=== PATIENT | male | born 1940 | race Caucasian/White ===

== ENCOUNTER 2017-10-12 12:41 | Observation (INO) ==
--- NOTE | 2017-10-12 12:57 | Emergency Department Note ---
Disposition Clinical Impression: Acute renal failure Disposition: Admitted As Inpatient Condition: Fair Referrals: Parker Church DO [Primary Care Provider] - Time of Disposition: 14:27 (milka mckeon) Arrhythmia/Palpitations HPI - General Chief Complaint: ED Arrhythmia/Palpitations Stated Complaint: Palpitations Time Seen by Provider: 10/12/17 12:50 Source: patient Mode of arrival: ambulatory Limitations: no limitations Nursing Notes Reviewed: Yes Vital Signs Reviewed: Yes - History of Present Illness HPI Narrative: 77-year-old who presents to the emergency room is having intermittent patient is usually in the morning he had 3 episodes this week. 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 Duration: constant Severity: mild Context: occurred during rest Arrhythmia History: pacemaker Associated symptoms: Denies: chest pain, shortness of breath, syncope, near- syncope, nausea, vomiting, anxiety, diaphoresis, cough, paresthesias, muscle cramps - Related Data Home Medications Medication Instructions Recorded Confirmed Atorvastatin [Lipitor] 20 mg PO DAILY 04/02/15 10/12/17 Escitalopram [Lexapro] 40 mg PO DAILY 04/02/15 10/12/17 Levothyroxine [Synthroid] 75 mcg PO DAILY 04/02/15 10/12/17 Mirtazapine [Remeron] 15 mg PO HS 04/02/15 10/12/17 Warfarin [Coumadin] 5 mg PO MOFR 04/02/15 10/12/17 lamoTRIgine [Lamictal] 25 mg PO DAILY 07/26/15 10/12/17 Buspirone HCl [Buspar] 7.5 mg PO BID 05/22/16 10/12/17 Melatonin/Pyridoxine HCl (B6) 3 mg PO HS 05/22/16 10/12/17 [Melatonin 3 mg Tablet] Omeprazole [PriLOSEC] 20 mg PO DAILY 05/22/16 10/12/17 Cyanocobalamin (Vitamin B-12) 1,000 mcg PO DAILY 03/15/17 10/12/17 [Vitamin B12] Previous Rx's Medication Instructions Recorded Aspirin Enteric Coated [Aspirin EC] 81 mg PO DAILY #90 tablet. 05/26/16 Metoprolol [Lopressor] 12.5 mg PO BID #60 tablet 03/16/17 Warfarin [Coumadin] 2.5 mg PO SUTUWETHSA #0 03/16/17 Allergies Allergy/AdvReac Type Severity Reaction Status Date / Time Iodinated Contrast- Oral and Allergy Anaphylaxis Verified 10/12/17 12:41 IV Dye [Iodinated Contrast Media - IV Dye] diazepam [From Valium] AdvReac Confusion Verified 10/12/17 12:41 lisinopril AdvReac Cough Verified 10/12/17 12:41 All systems ED: reviewed and negative except as stated. Review of Systems: As Per HPI Constitutional: Denies: fever, chills, weakness Eyes: Denies: eye pain, eye discharge ENT ED: Denies: ear pain, throat pain Cardiovascular: Reports: chest pain, palpitations. Denies: dyspnea on exertion Respiratory: Denies: cough, dyspnea, wheezes Gastrointestinal: Denies: abdominal pain, nausea, vomiting Genitourinary: Denies: urgency, dysuria Musculoskeletal: Denies: back pain Integumentary: Denies: rash, abrasion Neurological: Denies: headache Psychiatric: Denies: anxiety Endocrine: Denies: fatigue Hematological/Lymphatic: Denies: easy bleeding Allergic/Immunologic: Denies: facial swelling Past Medical History - Past Medical History Attestation: Yes The following information was validated with the patient. Source: patient, old records reviewed, nursing notes reviewed Medical history: Reports: aortic aneurysm, asthma, cancer, COPD, coronary artery disease, CVA, DVT, GERD, hyperlipidemia, hypertension, myocardial infarction, renal disease, thyroid disease Surgical history: Reports: angioplasty/stent, appendectomy, cancer surgery, carotid endarterectomy, cholecystectomy, other Psychiatric history: Reports: bipolar, depression - Social History Smoking Status: Former smoker Smokeless Tobacco Status: No Alcohol use: Reports: none Drug use: Reports: none Physical Exam - General Limitations: no limitations General appearance: alert, in no apparent distress, anxious, other (Very dry skin noted about the facial and oral area of the patient) - Head Head exam: atraumatic, normocephalic - Eye Eye exam: Present: normal appearance, PERRL, EOMI - ENT ENT exam: normal exam, normal oropharynx, mucous membranes moist - Neck Neck exam: Present: normal inspection, full ROM, trachea midline - Chest Chest inspection: Present: normal inspection, symmetric chest wall rise - Respiratory Respiratory exam: Present: normal lung sounds bilaterally - Cardiovascular Cardiovascular exam: Present: regular rate, normal rhythm, normal heart sounds - Abdominal Exam Abdominal exam: Present: soft, Non-Tender, normal bowel sounds. Absent: mass, pulsatile mass - Expanded Upper Extremity Exam Shoulder exam: Present: normal inspection, full ROM Arm exam: Present: normal inspection, full ROM Elbow exam: Present: normal inspection, full ROM Forearm/Wrist exam: Present: normal inspection, full ROM Hand exam: Present: normal inspection, full ROM Vascular exam: Normal: capillary refill, radial pulse - Expanded Lower Extremity Exam Hip/Pelvis exam: Present: normal inspection, full ROM Upper leg exam: Present: normal inspection, full ROM Knee exam: Present: normal inspection, full ROM Lower leg exam: Present: normal inspection, full ROM Ankle exam: Present: normal inspection, full ROM Foot/toe exam: Present: normal inspection, full ROM Neurovascular/Tendon exam: Present: normal capillary refill, normal fine/light touch. Absent: motor deficit, sensory deficit, tendon deficit Gait: observed and normal - Back Exam Back exam: Present: normal inspection, full ROM. Absent: muscle spasm - Neurological Exam Neurological exam: Present: alert, oriented X3, CN II-XII intact, normal gait - Psychiatric Psychiatric exam: Present: normal affect, normal mood - Skin Skin exam: Present: warm, dry, intact, normal color, other (Dry skin noted about the face) Course Course Narrative: Patient is seen and examined patient's laboratory database. The results with the family patient's kidney function that was almost doubled since the previous time when he's had blood work done here at the emergency room as result will recommend Dr. Soni has agreed he is well aware and knows the individual and IV hydration is started Vital Signs Temperature 98.6 F 10/12/17 12:44 Pulse Rate 68 10/12/17 12:44 Respiratory Rate 18 10/12/17 12:44 Blood Pressure 108/65 10/12/17 12:44 O2 Sat by Pulse Oximetry 93 10/12/17 12:44 Temperature 98.6 F 10/12/17 12:44 Pulse Rate 68 10/12/17 12:44 Respiratory Rate 18 10/12/17 12:44 Blood Pressure 108/65 10/12/17 12:44 O2 Sat by Pulse Oximetry 93 10/12/17 12:44 Oxygen Delivery Oxygen Delivery Room Air Arrhythmia/Palpitations - Differential Diagnosis Differential Diagnosis: Likely: palpitations, anxiety, metabolic/electrolyte disturbance - Medical Records Medical records reviewed: Yes I reviewed the patient's medical records. - Lab Data Lab results reviewed: Yes I reviewed the patient's lab results. - Radiology Data Radiology results reviewed: Yes I reviewed the patient's radiology results. ITS Impressions Chest X-Ray 10/12/17 12:57 IMPRESSION: Stable chest without acute cardiopulmonary findings. D/ / Ursula Villela MD / Usrula Villela MD Interpreting Provider: Ursula Villela MD - EKG Data EKG attestation: Yes I reviewed and interpreted this EKG. EKG results narrative: Paced rhythm no ectopy noted rate 60 WV 182 Kurer is 90 QT 408 axis XXXV Critical Care Time Critical Care Time: No
[2017-10-12 13:37] LABS: Basophils % 0.5 %; Eosinophils # 0.4 K/mcL (0.0-0.6); Eosinophils % 5.5 %; Hematocrit 41.9 % (37.5-50.1); Hemoglobin 13.4 g/dL (12.9-16.9); Immature Granulocytes % 0.3 % (0-4); Lymphocytes # 2.5 K/mcL (0.6-4.6); Lymphocytes % 32.6 %; Mean Corpuscular Hemoglobin 29.8 pg (28.0-33.3); Mean Corpuscular Volume 93.3 fL (83.0-100.0); Mean Platelet Volume 9.5 fL (9.4-12.4); Monocytes # 0.7 K/mcL (0.0-1.3); Platelet Count 183 K/mcL (140-400); Red Blood Count 4.49 M/mcL (4.19-5.50); Red Cell Distribution Width 13.7 % (11.5-14.5); Segmented Neutrophils % 52.1 %
[2017-10-12 13:39] LABS: INR 3.2; Prothrombin Time 34.8 Seconds (9.4-12.1)
[2017-10-12 13:41] LABS: Activated Partial Thrombo Time 51.4 Seconds (26.0-36.0)
[2017-10-12 13:49] LABS: Troponin I < 0.03 ng/mL (< 0.04)
[2017-10-12 14:01] LABS: Bilirubin,Urine Negative (Negative); Blood,Urine Negative (Negative); Clarity,Urine Clear (Clear); Color,Urine Yellow (Yellow); Glucose,Urine (UA) Normal (Normal); Ketones,Urine Negative (Negative); Leukocyte Esterase,Urine Negative (Negative); Nitrite,Urine Negative (Negative); Protein,Urine Negative (Neg-Trace); Specific Gravity,Urine 1.015 (1.010-1.025); Urobilinogen,Urine Normal (Normal)
[2017-10-12 14:03] LABS: Thyroid Stimulating Hormone 0.504 mcIU/mL (0.340-5.600)
[2017-10-12 14:18] LABS: Calcium 9.1 mg/dL (8.6-10.3); Potassium 4.6 mEq/L (3.5-5.1)
[2017-10-12] MEDS ORDERED: 0.9 % Sodium Chloride 1,000 ML IVC ONE (14:28)
[2017-10-12] MEDS ORDERED: 0.9 % Sodium Chloride 1,000 ML IVC SCH ×2 (14:30→15:17)
[2017-10-12] MEDS ORDERED: Naloxone 0.4 MG/ML INJ IVP PRN (15:17)
[2017-10-12] MEDS ORDERED: *HR* Warfarin 5 MG TABLET PO SCH (18:00)
--- NOTE | 2017-10-12 18:19 | Internal Med History&Physical ---
Date of Encounter: 10/12/17 Time of Encounter: 17:45 Assessment and Plan (1) Acute renal failure Current visit: Yes Status: Acute He will receive IV fluids. Follow-up labs will be done in a.m. Qualifiers: Acute renal failure type: unspecified Qualified Code(s): N17.9 - Acute kidney failure, unspecified (2) CKD (chronic kidney disease) stage 3, GFR 30-59 ml/min Current visit: Yes Status: Chronic Will monitor renal indices. (3) History of DVT of lower extremity Current visit: No Status: Acute Continue Coumadin. Internal Medicine - H&P: HPI Chief complaint: Palpitations, acute on chronic renal failure Admitted From: Emergency Dept Plans for Post Hospital Care: Home History of present illness: Mr. Maria is a 77 year old male who came to emergency room stating he had a sensation of "palpitations" lasting approximate 45 minutes this morning. He has had several previous episodes but never exceeding 10 minutes duration. He came to emergency room was evaluated was found to have acute on chronic renal failure. He was admitted to [facility] floor for ongoing care needs. Most recent previous creatinine was 1.49 on 03/16/2017. He has had stage III chronic kidney disease on all labs since dating to March 2014. 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 He denies other kidney bladder or prostate disorders. He denies history of hypertension although this is listed in PMH. He is on Coumadin for history of DVT. He denies pulmonary embolism. 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 He has known ASHD status post LA with PTCA and stent placement over 15 years ago. He does not know if the "flutter" has been diagnosed. Echocardiogram 05/23/2016 showed LVEF of 60-65%. There was reported mild diastolic dysfunction but E/A ratio was 1.4. He had a 3.9 x 3.7 fusiform infrarenal abdominal aortic aneurysm on CT 05/23/2016. He has had bilateral carotid endarterectomies. Past Med Surg Social Fam HX - Past Medical History Medical history: aortic aneurysm, asthma, cancer, COPD, coronary artery disease , CVA, DVT, GERD, hyperlipidemia, hypertension, myocardial infarction, renal disease, thyroid disease Additional medical history: Abdominal Aortic Aneurism, Heart stent x1 Psychiatric history: bipolar, depression - Past Surgical History Surgical History: angioplasty/stent, appendectomy, cancer surgery, carotid endarterectomy, cholecystectomy, other Additional surgical history: gastrectomy - Social History Smoking Status: Former smoker Smokeless Tobacco Status: No Alcohol use: none Drug use: none - Family History Daughter Adopted: No Living Status: Still Living Hx Family Cardiac Disorders: No Hx Family Respiratory Disorders: No Hx Family Cancer: No Hx Family GI Disorders: Yes (Choli) Hx Family Endocrine Disorder: No Hx Family Neuromuscular Disorders: No Hx Family Neurologic Disorders: No Hx Family HEENT Disorders: No Hx Family Autoimmune Disorders: No Internal Medicine - H&P: Meds Atorvastatin [Lipitor] 20 mg PO DAILY 04/02/15 [History] Escitalopram [Lexapro] 40 mg PO DAILY 04/02/15 [History] Levothyroxine [Synthroid] 75 mcg PO DAILY 04/02/15 [History] Mirtazapine [Remeron] 15 mg PO HS 04/02/15 [History] Warfarin [Coumadin] 5 mg PO MOFR 04/02/15 [History] lamoTRIgine [Lamictal] 25 mg PO DAILY 07/26/15 [History] Buspirone HCl [Buspar] 7.5 mg PO BID 05/22/16 [History] Melatonin/Pyridoxine HCl (B6) [Melatonin 3 mg Tablet] 3 mg PO HS 05/22/16 [ History] Omeprazole [PriLOSEC] 20 mg PO DAILY 05/22/16 [History] Aspirin Enteric Coated [Aspirin EC] 81 mg PO DAILY #90 tablet. 05/26/16 [Rx] Cyanocobalamin (Vitamin B-12) [Vitamin B12] 1,000 mcg PO DAILY 03/15/17 [History ] Metoprolol [Lopressor] 12.5 mg PO BID #60 tablet 03/16/17 [Rx] Warfarin [Coumadin] 2.5 mg PO SUTUWETHSA #0 03/16/17 [Rx] 3 Allergy/AdvReac Type Severity Reaction Status Date / Time Iodinated Contrast- Oral and Allergy Anaphylaxis Verified 10/12/17 12:41 IV Dye [Iodinated Contrast Media - IV Dye] diazepam [From Valium] AdvReac Confusion Verified 10/12/17 12:41 lisinopril AdvReac Cough Verified 10/12/17 12:41 All Systems PM: A 10-system review of systems was performed and is negative for pertinent findings except as documented above in the HPI. Review of systems: Gen.: His weight is increased from 81.5 kg on 05/26/2016 to 90.974 kg today Cardiovascular: As per history of present illness Respiratory: He smoked from approximately age [age]. He denies chronic lung disease and does not use home oxygen. GI: He has had cholecystectomy. He has rare GERD symptoms. He denies disorders of his liver or exocrine pancreas. The chart reports he has had partial gastrectomy Billroth II procedure for duodenal ulcer. : As per history of present illness Neurologic: He reports his memory has worsened over the past few years and he has been told he is in the early stages of Alzheimer's. He has had "mini strokes" without focal neurologic deficit. Endocrine: He denies diabetes but has hypothyroidism and hyperlipidemia Hematology/oncology: He denies internal malignancies. He had skin cancer removed from his neck recently. He thinks he has had anemia in the past. Psychiatric: He has anxiety and bipolar disorder but denies other mental health issues. [place] skeletal: Denies arthritis gout or other bone joint or muscle disorders. - Constitutional Vitals: Temp Pulse Resp BP Pulse Ox 98.5 F 64 16 114/65 96 10/12/17 15:17 10/12/17 15:17 10/12/17 15:17 10/12/17 15:17 10/12/17 15:17 Exam: Gen.: He is a well-developed well-nourished male resting comfortably in bed who appears in no acute distress HEENT: Head is atraumatic and normocephalic. Eyes: EOMI. There is no scleral icterus. Mouth: Mucosa is moist. Neck: Supple and nontender. There is no thyromegaly or adenopathy noted. Heart: Regular without murmurs gallops or ectopics Lungs: No wheezes or crackles are heard. Abdomen: Soft and nontender. No masses or guarding are noted. Extremities: There is no cyanosis edema or clubbing noted. Dorsalis pedis and posttibial pulses are trace to 1+ palpable bilaterally. His feet are warm to touch. Neurologic: Mental status: He is talkative and a fair to good historian. He does not remember some details of his history. Cranial nerves: Smile is symmetric. Forehead wrinkles bilaterally. Tongue protrudes midline. EOMI. Motor: There is no pronator drift. Cerebellar: Finger to nose is intact bilaterally. Skin: Warm and dry Internal Med - H&P Results - Labs CBC & Chem 7: 10/12/17 13:10 10/12/17 13:10 Labs: Cardiac Enzymes 10/12/17 Range/Units 16:20 Troponin I < 0.03 (< 0.04) ng/mL
--- NOTE | 2017-10-12 18:45 | Electrocardiograph Report ---
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
[2017-10-12] MEDS ORDERED: Melatonin 3 MG TABLET PO SCH (21:00)
[2017-10-12] MEDS ORDERED: Mirtazapine 15 MG TABLET PO SCH (21:00)
[2017-10-13 06:21] LABS: Prothrombin Time 32.6 Seconds (9.4-12.1)
[2017-10-13 07:14] LABS: Albumin 3.3 g/dL (3.5-5.7); Albumin/Globulin Ratio 1.3 (1.1-2.2); Bilirubin,Total 0.4 mg/dL (0.3-1.0); Calcium 8.5 mg/dL (8.6-10.3); Globulin 2.6 g/dL (2.4-3.5); Potassium 4.6 mEq/L (3.5-5.1); Total Protein 5.9 g/dL (6.4-8.9)
[2017-10-13 08:58] VITALS: BP 112/53
[2017-10-13] MEDS ORDERED: Cyanocobalamin (B-12) 1,000 MCG TABLET PO SCH (09:00)
[2017-10-13] MEDS ORDERED: Aspirin Enteric Coated 81 MG Tablet PO SCH (09:00)
[2017-10-13] MEDS ORDERED: lamoTRIgine 25 MG TABLET PO SCH (09:00)
--- NOTE | 2017-10-13 10:03 | Discharge Summary ---
Orders not resulted at time of discharge: Pending orders 10/13/17 05:06 Vitamin B12 AM 0400 Date of Encounter: 10/13/17 Time of Encounter: 09:55 - Discharge Diagnosis (1) Acute renal failure Priority: Primary Status: Acute Qualifiers: Acute renal failure type: unspecified Qualified Code(s): N17.9 - Acute kidney failure, unspecified (2) CKD (chronic kidney disease) stage 3, GFR 30-59 ml/min Priority: Secondary Status: Chronic (3) History of DVT of lower extremity Priority: Secondary Status: Acute Hospital course: Mr. Maria is a 77 year old male who came to emergency room stating he had a sensation of "palpitations" lasting approximate 45 minutes this morning. He has had several previous episodes but never exceeding 10 minutes duration. He came to emergency room was evaluated was found to have acute on chronic renal failure. He was admitted to [facility] for ongoing care needs. Initial orders were written by the emergency room physician. I saw him on October 12 and performed the history and physical. He was started on IV fluids. Follow -up labs on October 13 showed BUN and creatinine decreased to 27 and 1.93 respectively with estimated GFR 34. He had no more sensation of palpitations. Repeat cardiac enzymes showed no evidence of myocardial damage. When I saw him on October 13 he felt stable for discharge home which I felt was reasonable. He will follow with his PCP within 1 week. His PCP can review medications to avoid nephrotoxic drugs. - Time Spent with Patient Total time spent providing and/or coordinating discharge services: - Discharge Medications Home Medications: Atorvastatin [Lipitor] 20 mg PO DAILY 04/02/15 [History] Escitalopram [Lexapro] 40 mg PO DAILY 04/02/15 [History] Levothyroxine [Synthroid] 75 mcg PO DAILY 04/02/15 [History] Mirtazapine [Remeron] 15 mg PO HS 04/02/15 [History] Warfarin [Coumadin] 5 mg PO MOFR 04/02/15 [History] lamoTRIgine [Lamictal] 25 mg PO DAILY 07/26/15 [History] Buspirone HCl [Buspar] 7.5 mg PO BID 05/22/16 [History] Melatonin/Pyridoxine HCl (B6) [Melatonin 3 mg Tablet] 3 mg PO HS 05/22/16 [ History] Omeprazole [PriLOSEC] 20 mg PO DAILY 05/22/16 [History] Aspirin Enteric Coated [Aspirin EC] 81 mg PO DAILY #90 tablet. 05/26/16 [Rx] Cyanocobalamin (Vitamin B-12) [Vitamin B12] 1,000 mcg PO DAILY 03/15/17 [History ] Metoprolol [Lopressor] 12.5 mg PO BID #60 tablet 03/16/17 [Rx] Warfarin [Coumadin] 2.5 mg PO SUTUWETHSA #0 03/16/17 [Rx] Allergies/Adverse Reactions: 3 Allergy/AdvReac Type Severity Reaction Status Date / Time Iodinated Contrast- Oral and Allergy Anaphylaxis Verified 10/12/17 12:41 IV Dye [Iodinated Contrast Media - IV Dye] diazepam [From Valium] AdvReac Confusion Verified 10/12/17 12:41 lisinopril AdvReac Cough Verified 10/12/17 12:41 Date of admission: 10/12/17 14:37 Primary care physician: Parker Church DO - Constitutional Vitals: Temp Pulse Resp BP Pulse Ox 97.5 F L 61 18 112/53 95 10/12/17 23:43 10/13/17 08:57 10/13/17 08:57 10/13/17 08:57 10/13/17 08:57 - Patient Status Disposition: Home, Self-Care Overall status at discharge: patient is progressing back to baseline - Discharge Instructions Follow Up With: Parker Church DO [Primary Care Provider] - 1 week - Diet and Activity Activity: resume usual activities as tolerated Diet: advance to your usual diet
[2017-10-17] MEDS ORDERED: *HR* Warfarin 5 MG TABLET PO SCH ×2 (18:00)
[2017-10-18] MEDS ORDERED: *HR* Warfarin 5 MG TABLET PO SCH (18:00)
== END 2017-10-13 11:20 | disposition home or self-care (01) ==
LOC: INPPIK 12:41 → EMEROOPIK 12:41 → INPPIK 14:48
PROVIDERS: ADMIT Internal Medicine; ATTEND Internal Medicine

== ENCOUNTER 2018-09-27 10:00 | Inpatient (IN) ==
[2018-09-27] MEDS ORDERED: levoFLOXacin 500 MG/100 ML 500 MG/100 ML BAG IVPB ONE (10:32)
[2018-09-27] MEDS ORDERED: Ipratropium/Albuterol Neb 3 ML IH ONE (10:32)
[2018-09-27] MEDS ORDERED: methylPREDNISolone 125 MG/2 ML VIAL IVP ONE (10:32)
--- NOTE | 2018-09-27 10:36 | Emergency Department Note ---
Disposition Clinical Impression: Acute exacerbation of chronic obstructive airways disease Disposition: Admitted As Inpatient Condition: Fair Time of Disposition: 15:11 SOB HPI - General Chief Complaint: ED Shortness of Breath/Dyspnea Stated Complaint: short of breath Time Seen by Provider: 09/27/18 10:04 Source: patient Mode of arrival: ambulatory Limitations: no limitations Nursing Notes Reviewed: Yes Vital Signs Reviewed: Yes - History of Present Illness 78-year-old male who presents emergency room his increasing stress breath but no chest pain chest pressure he said cough and congestion. No apnea and no cyanosis. Worsened here in the past week. Denies any diarrhea melena hematochezia hematemesis. Denies the ability to cough up any phlegm. He denies any fever chills joint aches rash or lesions. Patient states that his family brought him in. Family tells me though that his had increasing forgetfulness an exacerbation of his dementia and recently saw neurology and they are also concerned from that aspect denies though any numbness tingling weakness loss sensation or any recent falls all systems reviewed and are otherwise negative Pt Subjective Complaint: shortness of breath Onset (ago): week(s) Context: recent illness Severity: moderate Consistency/Duration: constant, gradually worsening Improves with: nothing Worsens with: exertion Known history of: COPD Associated symptoms: Reports: cough, wheezing, sputum production (unable to expectorate). Denies: chest pain, pain with inspiration, fever, orthopnea, lower extremity pain, polyuria, polydipsia, parasthesias, palpitations, hemoptysis, diaphoresis, nausea/vomiting, syncope, abdominal pain, rash, sense of impending doom Treatment prior to arrival: bronchodilator Cough present: Yes Cough Description: Involuntary, Weak, Rattling Cough Frequency: Intermittent Sputum production: No Sputum Amount: None - Related Data Home Medications Medication Instructions Recorded Confirmed Atorvastatin [Lipitor] 20 mg PO DAILY 04/02/15 09/27/18 Escitalopram [Lexapro] 40 mg PO DAILY 04/02/15 10/12/17 Levothyroxine [Synthroid] 75 mcg PO DAILY 04/02/15 09/27/18 Mirtazapine [Remeron] 15 mg PO HS 04/02/15 09/27/18 Warfarin [Coumadin] 5 mg PO MOFR 04/02/15 09/27/18 lamoTRIgine [Lamictal] 25 mg PO DAILY 07/26/15 09/27/18 Buspirone HCl [Buspar] 7.5 mg PO BID 05/22/16 09/27/18 Melatonin/Pyridoxine HCl (B6) 3 mg PO HS 05/22/16 09/27/18 [Melatonin 3 mg Tablet] Omeprazole [PriLOSEC] 40 mg PO DAILY 05/22/16 09/27/18 Cyanocobalamin (Vitamin B-12) 1,000 mcg PO DAILY 03/15/17 09/27/18 [Vitamin B12] Donepezil [Aricept] 5 mg PO HS 09/27/18 09/27/18 Previous Rx's Medication Instructions Recorded Aspirin Enteric Coated [Aspirin EC] 81 mg PO DAILY #90 tablet. 05/26/16 Metoprolol [Lopressor] 12.5 mg PO BID #60 tablet 03/16/17 Warfarin [Coumadin] 2.5 mg PO SUTUWETHSA #0 03/16/17 Allergies Allergy/AdvReac Type Severity Reaction Status Date / Time Iodinated Contrast- Oral and Allergy Anaphylaxis Verified 10/12/17 12:41 IV Dye [Iodinated Contrast Media - IV Dye] diazepam [From Valium] AdvReac Confusion Verified 10/12/17 12:41 lisinopril AdvReac Cough Verified 10/12/17 12:41 All systems ED: reviewed and negative except as stated. Review of Systems: As Per HPI Constitutional: Reports: weakness. Denies: fever, chills Eyes: Denies: eye pain, eye discharge ENT ED: Reports: congestion. Denies: ear pain, throat pain Cardiovascular: Denies: chest pain, palpitations Respiratory: Reports: cough, dyspnea, wheezes, sputum production Gastrointestinal: Denies: abdominal pain, nausea Genitourinary: Denies: urgency, dysuria Musculoskeletal: Denies: back pain Integumentary: Denies: rash Neurological: Denies: headache Psychiatric: Denies: anxiety Endocrine: Denies: fatigue Hematological/Lymphatic: Denies: easy bleeding Allergic/Immunologic: Denies: facial swelling Past Medical History - Past Medical History Attestation: Yes The following information was validated with the patient. Source: patient, old records reviewed, nursing notes reviewed Medical history: Reports: aortic aneurysm, asthma, cancer, COPD, coronary artery disease, CVA, DVT, GERD, hyperlipidemia, hypertension, myocardial infarction, renal disease, thyroid disease, other Surgical history: Reports: angioplasty/stent, appendectomy, cancer surgery, carotid endarterectomy, cholecystectomy, other Psychiatric history: Reports: bipolar, depression - Social History Smoking Status: Former smoker Smokeless Tobacco Status: No Alcohol use: Reports: none Drug use: Reports: none Physical Exam - General Limitations: no limitations General appearance: alert, in no apparent distress - Head Head exam: atraumatic, normocephalic, normal inspection - Eye Eye exam: Present: normal appearance, PERRL, EOMI - ENT ENT exam: normal exam, normal oropharynx, mucous membranes moist, TM's normal bilaterally, normal external ear exam - Neck Neck exam: Present: normal inspection, full ROM, trachea midline - Chest Chest inspection: Present: normal inspection, symmetric chest wall rise - Respiratory Respiratory exam: Present: normal lung sounds bilaterally - Cardiovascular Cardiovascular exam: Present: regular rate, normal rhythm, normal heart sounds - Abdominal Exam Abdominal exam: Present: soft, Non-Tender, normal bowel sounds. Absent: mass, pulsatile mass - Extremities Exam Extremities exam: Present: normal inspection, full ROM, normal capillary refill. Absent: tenderness, pedal edema, joint swelling, calf tenderness - Expanded Lower Extremity Exam Neurovascular/Tendon exam: Present: normal capillary refill, normal fine/light touch Gait: observed and normal - Back Exam Back exam: Present: normal inspection, full ROM. Absent: muscle spasm - Neurological Exam Neurological exam: Present: alert, oriented X3, CN II-XII intact, normal gait - Psychiatric Psychiatric exam: Present: normal affect, normal mood - Skin Skin exam: Present: warm, dry, intact, normal color Course Course Narrative: he was initially seen and evaluated patient was given an aerosol treatment 2 this did help loosen up the cough but he still had a wet rattly cough despite a chest x-ray showing no acute process it did appear though that he had like an underlying COPD as result patient was transferred to [facility] from the emergency room patient was then transferred from the emergency room to [facility] for further care treatment management after discussion with family and they agreed for transfer Vital Signs Temperature 98.2 F 09/27/18 10:01 Pulse Rate 66 09/27/18 10:01 Respiratory Rate 09/27/18 10:01 Blood Pressure 135/54 09/27/18 10:01 O2 Sat by Pulse Oximetry 93 09/27/18 10:01 Temperature 98.8 F 09/27/18 13:32 Pulse Rate 88 09/27/18 13:32 Respiratory Rate 20 09/27/18 13:32 Blood Pressure 84/46 09/27/18 13:32 O2 Sat by Pulse Oximetry 96 09/27/18 13:32 Oxygen Delivery Oxygen Delivery Room Air Shortness of Breath/Dyspnea - Differential Diagnosis Likely: acute exacerbation of chronic obstructive airways disease, congestive heart failure, pneumonia - Medical Records Medical records reviewed: Yes I reviewed the patient's medical records. - Lab Data Lab results reviewed: Yes I reviewed the patient's lab results. Result diagrams: 09/27/18 11:10 09/27/18 11:10 Lab Results 09/27/18 09/27/18 09/27/18 Range/Units 10:20 11:10 11:10 WBC 9.3 (4.3-11.1) K/mcL RBC 3.67 L (4.19-5.50) M/mcL Hgb 11.2 L (12.9-16.9) g/dL Hct 34.9 L (37.5-50.1) % MCV 95.1 (83.0-100.0) fL MCH 30.5 (28.0-33.3) pg MCHC 32.1 (31.6-35.5) g/dL RDW 13.9 (11.5-14.5) % Plt Count 153 (140-400) K/mcL MPV 9.1 L (9.4-12.4) fL Immature Gran % 0.3 (0-4) % Seg Neutrophils % 53.4 % Lymphocytes % 36.5 % Monocytes % 7.4 % Eosinophils % 2.0 % Basophils % 0.4 % Neutrophils # 5.0 (1.6-8.9) K/mcL Lymphocytes # 3.4 (0.6-4.6) K/mcL Monocytes # 0.7 (0.0-1.3) K/mcL Eosinophils # 0.2 (0.0-0.6) K/mcL Basophils # 0.0 (0.0-0.2) K/mcL PT (9.4-12.1) Seconds INR APTT 40.7 H (26.0-36.0) Seconds Sodium (136-145) mEq/L Potassium (3.5-5.1) mEq/L Chloride (98-107) mEq/L Carbon Dioxide (23-29) mEq/L BUN (8-23) mg/dL Creatinine (0.70-1.30) mg/dL Est GFR ( Amer) (> 60) Est GFR (Non-Af Amer) (> 60) BUN/Creatinine Ratio (6-26) Glucose (70-105) mg/dL Calculated Osmolality (280-300) Lactic Acid (0.5-2.2) mmol/L Calcium (8.6-10.3) mg/dL Magnesium (1.6-2.6) mg/dL Total Bilirubin (0.3-1.0) mg/dL AST (13-39) Units/L ALT (7-52) Units/L Alkaline Phosphatase (34-104) Units/L Troponin I (< 0.04) ng/mL B-Natriuretic Peptide (Less than 100) pg/mL Serum Total Protein (6.4-8.9) g/dL Albumin (3.5-5.7) g/dL Globulin (2.4-3.5) g/dL Albumin/Globulin Ratio (1.1-2.2) TSH (0.340-5.600) mcIU/mL Urine Color Light Yellow (Yellow) Urine Clarity Clear (Clear) Urine pH 6.0 (5.0-8.0) pH Units Ur Specific [place] 1.015 (1.010-1.025) Urine Protein Negative (Neg-Trace) mg/dL Urine Glucose (UA) Normal (Normal) mg/dL Urine Ketones Negative (Negative) mg/dL Urine Blood Negative (Negative) Urine Nitrite Negative (Negative) Urine Bilirubin Negative (Negative) Urine Urobilinogen Normal (Normal) mg/dL Ur Leukocyte Esterase Negative (Negative) Ur Culture Indicated? NO (NO) 09/27/18 09/27/18 09/27/18 Range/Units 11:10 11:10 11:10 WBC (4.3-11.1) K/mcL RBC (4.19-5.50) M/mcL Hgb (12.9-16.9) g/dL Hct (37.5-50.1) % MCV (83.0-100.0) fL MCH (28.0-33.3) pg MCHC (31.6-35.5) g/dL RDW (11.5-14.5) % Plt Count (140-400) K/mcL MPV (9.4-12.4) fL Immature Gran % (0-4) % Seg Neutrophils % % Lymphocytes % % Monocytes % % Eosinophils % % Basophils % % Neutrophils # (1.6-8.9) K/mcL Lymphocytes # (0.6-4.6) K/mcL Monocytes # (0.0-1.3) K/mcL Eosinophils # (0.0-0.6) K/mcL Basophils # (0.0-0.2) K/mcL PT (9.4-12.1) Seconds INR APTT (26.0-36.0) Seconds Sodium 139 (136-145) mEq/L Potassium 5.1 (3.5-5.1) mEq/L Chloride 105 (98-107) mEq/L Carbon Dioxide 28 (23-29) mEq/L BUN 37 H (8-23) mg/dL Creatinine 2.32 H (0.70-1.30) mg/dL Est GFR ( Amer) 33 L (> 60) Est GFR (Non-Af Amer) 27 L (> 60) BUN/Creatinine Ratio 16 (6-26) Glucose 112 H (70-105) mg/dL Calculated Osmolality 297 (280-300) Lactic Acid 1.7 (0.5-2.2) mmol/L Calcium 8.7 (8.6-10.3) mg/dL Magnesium (1.6-2.6) mg/dL Total Bilirubin 0.4 (0.3-1.0) mg/dL AST 14 (13-39) Units/L ALT 11 (7-52) Units/L Alkaline Phosphatase 80 (34-104) Units/L Troponin I (< 0.04) ng/mL B-Natriuretic Peptide 328 H (Less than 100) pg/mL Serum Total Protein 6.9 (6.4-8.9) g/dL Albumin 3.9 (3.5-5.7) g/dL Globulin 3.0 (2.4-3.5) g/dL Albumin/Globulin Ratio 1.3 (1.1-2.2) TSH (0.340-5.600) mcIU/mL Urine Color (Yellow) Urine Clarity (Clear) Urine pH (5.0-8.0) pH Units Ur Specific [place] (1.010-1.025) Urine Protein (Neg-Trace) mg/dL Urine Glucose (UA) (Normal) mg/dL Urine Ketones (Negative) mg/dL Urine Blood (Negative) Urine Nitrite (Negative) Urine Bilirubin (Negative) Urine Urobilinogen (Normal) mg/dL Ur Leukocyte Esterase (Negative) Ur Culture Indicated? (NO) 09/27/18 09/27/18 Range/Units 11:10 11:10 WBC (4.3-11.1) K/mcL RBC (4.19-5.50) M/mcL Hgb (12.9-16.9) g/dL Hct (37.5-50.1) % MCV (83.0-100.0) fL MCH (28.0-33.3) pg MCHC (31.6-35.5) g/dL RDW (11.5-14.5) % Plt Count (140-400) K/mcL MPV (9.4-12.4) fL Immature Gran % (0-4) % Seg Neutrophils % % Lymphocytes % % Monocytes % % Eosinophils % % Basophils % % Neutrophils # (1.6-8.9) K/mcL Lymphocytes # (0.6-4.6) K/mcL Monocytes # (0.0-1.3) K/mcL Eosinophils # (0.0-0.6) K/mcL Basophils # (0.0-0.2) K/mcL PT 23.3 H (9.4-12.1) Seconds INR 2.1 APTT (26.0-36.0) Seconds Sodium (136-145) mEq/L Potassium (3.5-5.1) mEq/L Chloride (98-107) mEq/L Carbon Dioxide (23-29) mEq/L BUN (8-23) mg/dL Creatinine (0.70-1.30) mg/dL Est GFR ( Amer) (> 60) Est GFR (Non-Af Amer) (> 60) BUN/Creatinine Ratio (6-26) Glucose (70-105) mg/dL Calculated Osmolality (280-300) Lactic Acid (0.5-2.2) mmol/L Calcium (8.6-10.3) mg/dL Magnesium 3.0 H (1.6-2.6) mg/dL Total Bilirubin (0.3-1.0) mg/dL AST (13-39) Units/L ALT (7-52) Units/L Alkaline Phosphatase (34-104) Units/L Troponin I < 0.03 (< 0.04) ng/mL B-Natriuretic Peptide (Less than 100) pg/mL Serum Total Protein (6.4-8.9) g/dL Albumin (3.5-5.7) g/dL Globulin (2.4-3.5) g/dL Albumin/Globulin Ratio (1.1-2.2) TSH 0.377 (0.340-5.600) mcIU/mL Urine Color (Yellow) Urine Clarity (Clear) Urine pH (5.0-8.0) pH Units Ur Specific [place] (1.010-1.025) Urine Protein (Neg-Trace) mg/dL Urine Glucose (UA) (Normal) mg/dL Urine Ketones (Negative) mg/dL Urine Blood (Negative) Urine Nitrite (Negative) Urine Bilirubin (Negative) Urine Urobilinogen (Normal) mg/dL Ur Leukocyte Esterase (Negative) Ur Culture Indicated? (NO) - Radiology Data Radiology results reviewed: Yes I reviewed the patient's radiology results. ITS Impressions Chest X-Ray 09/27/18 10:30 IMPRESSION: No acute cardiopulmonary process. D/ / Nahum Villela MD / Nahum Villela MD Interpreting Provider: Nahum Villela MD Critical Care Time Critical Care Time: No
[2018-09-27] MEDS ORDERED: 0.9 % Sodium Chloride 1,000 ML IVC SCH ×2 (10:45→13:09)
[2018-09-27 10:50] LABS: Bilirubin,Urine Negative (Negative); Blood,Urine Negative (Negative); Clarity,Urine Clear (Clear); Color,Urine Light Yellow (Yellow); Glucose,Urine (UA) Normal (Normal); Ketones,Urine Negative (Negative); Leukocyte Esterase,Urine Negative (Negative); Nitrite,Urine Negative (Negative); Protein,Urine Negative (Neg-Trace); Specific Gravity,Urine 1.015 (1.010-1.025); Urobilinogen,Urine Normal (Normal)
[2018-09-27 11:29] LABS: Basophils % 0.4 %; Eosinophils # 0.2 K/mcL (0.0-0.6); Hematocrit 34.9 % (37.5-50.1); Hemoglobin 11.2 g/dL (12.9-16.9); Immature Granulocytes % 0.3 % (0-4); Lymphocytes # 3.4 K/mcL (0.6-4.6); Lymphocytes % 36.5 %; Mean Corpuscular HGB Conc 32.1 g/dL (31.6-35.5); Mean Corpuscular Hemoglobin 30.5 pg (28.0-33.3); Mean Corpuscular Volume 95.1 fL (83.0-100.0); Mean Platelet Volume 9.1 fL (9.4-12.4); Monocytes # 0.7 K/mcL (0.0-1.3); Monocytes % 7.4 %; Platelet Count 153 K/mcL (140-400); Red Blood Count 3.67 M/mcL (4.19-5.50); Red Cell Distribution Width 13.9 % (11.5-14.5); Segmented Neutrophils % 53.4 %; White Blood Count 9.3 K/mcL (4.3-11.1)
[2018-09-27 11:41] LABS: INR 2.1; Prothrombin Time 23.3 Seconds (9.4-12.1)
[2018-09-27 11:47] LABS: Albumin 3.9 g/dL (3.5-5.7); Albumin/Globulin Ratio 1.3 (1.1-2.2); Bilirubin,Total 0.4 mg/dL (0.3-1.0); Calcium 8.7 mg/dL (8.6-10.3); Potassium 5.1 mEq/L (3.5-5.1); Total Protein 6.9 g/dL (6.4-8.9)
[2018-09-27 11:50] LABS: Troponin I < 0.03 ng/mL (< 0.04)
[2018-09-27 12:04] LABS: Thyroid Stimulating Hormone 0.377 mcIU/mL (0.340-5.600)
[2018-09-27] MEDS ORDERED: Naloxone 0.4 MG/ML INJ IVP PRN (13:09)
[2018-09-27] MEDS: Ipratropium/Albuterol Neb 3 ML IH SCH ×2 (17:16→22:07)
[2018-09-27] MEDS: *HR* Warfarin 2.5 MG TABLET PO SCH (17:37)
[2018-09-27] MEDS ORDERED: MethylPREDNISolone 40 MG/ML VIAL IVP SCH (18:00)
--- NOTE | 2018-09-27 19:29 | Internal Med History&Physical ---
Date of Encounter: 09/27/18 Time of Encounter: 18:50 Assessment and Plan (1) Acute bronchitis Current visit: Yes Status: Acute Pro-calcitonin level will be done. He received a dose of IV Levaquin in emergency room and was started on Solu-Medrol. Steroids will be discontinued. Robitussin-DM will be ordered Qualifiers: Bronchitis organism: unspecified organism Qualified Code(s): J20.9 - Acute bronchitis, unspecified (2) Elevated brain natriuretic peptide (BNP) level Current visit: Yes Status: Acute Present on most labs since August 2014. Echocardiogram May 2016 showed LVEF of 60-65%. Monitor labs. (3) Anemia Current visit: Yes Status: Acute Check anemia testing in a.m. Qualifiers: Anemia type: unspecified type Qualified Code(s): D64.9 - Anemia, unspecified (4) CKD (chronic kidney disease) stage 3, GFR 30-59 ml/min Current visit: No Status: Chronic Monitor renal indices. (5) Hyperuricemia Current visit: Yes Status: Acute Check uric acid level in a.m. Internal Medicine - H&P: HPI Chief complaint: Cough and dyspnea Admitted From: Emergency Dept Plans for Post Hospital Care: Home History of present illness: Mr. Maria is a 78 year old male who came to emergency room complaining of 2-3 day history of chills, cough and dyspnea. He denies vomiting or diarrhea. His evaluated in emergency room and was felt to have exacerbation of COPD. He was admitted to [facility] floor for ongoing care. Respiratory history is significant for having smoked from approximately age 10- 30. He denies chronic lung disease and does not use home oxygen. He reports the cough has become productive of yellow sputum the past 24 hours. He denies hemoptysis. Past Med Surg Social Fam HX - Past Medical History Medical history: aortic aneurysm, asthma, cancer, COPD, coronary artery disease, DVT, GERD, hyperlipidemia, myocardial infarction, renal disease, thyroid disease, other Additional medical history: Abdominal Aortic Anurysm, Heart stent x1, skin cancer, Hypotension Psychiatric history: bipolar, depression - Past Surgical History Surgical History: pacemaker/AICD Additional surgical history: gastrectomy - Social History Smoking Status: Former smoker Smokeless Tobacco Status: No Alcohol use: none Drug use: none - Family History Daughter Adopted: No Living Status: Still Living Hx Family Cardiac Disorders: No Hx Family Respiratory Disorders: No Hx Family Cancer: No Hx Family GI Disorders: Yes (Choli) Hx Family Endocrine Disorder: No Hx Family Neuromuscular Disorders: No Hx Family Neurologic Disorders: No Hx Family HEENT Disorders: No Hx Family Autoimmune Disorders: No Internal Medicine - H&P: Meds Atorvastatin [Lipitor] 20 mg PO DAILY 04/02/15 [History] Escitalopram [Lexapro] 40 mg PO DAILY 04/02/15 [History] Levothyroxine [Synthroid] 75 mcg PO DAILY 04/02/15 [History] Mirtazapine [Remeron] 15 mg PO HS 04/02/15 [History] Warfarin [Coumadin] 5 mg PO MOFR 04/02/15 [History] lamoTRIgine [Lamictal] 25 mg PO DAILY 07/26/15 [History] Buspirone HCl [Buspar] 7.5 mg PO BID 05/22/16 [History] Melatonin/Pyridoxine HCl (B6) [Melatonin 3 mg Tablet] 3 mg PO HS 05/22/16 [History] Omeprazole [PriLOSEC] 40 mg PO DAILY 05/22/16 [History] Aspirin Enteric Coated [Aspirin EC] 81 mg PO DAILY #90 tablet. 05/26/16 [Rx] Cyanocobalamin (Vitamin B-12) [Vitamin B12] 1,000 mcg PO DAILY 03/15/17 [History] Metoprolol [Lopressor] 12.5 mg PO BID #60 tablet 03/16/17 [Rx] Warfarin [Coumadin] 2.5 mg PO SUTUWETHSA #0 03/16/17 [Rx] Donepezil [Aricept] 5 mg PO HS 09/27/18 [History] Allergy/AdvReac Type Severity Reaction Status Date / Time Iodinated Contrast- Oral and Allergy Anaphylaxis Verified 10/12/17 12:41 IV Dye [Iodinated Contrast Media - IV Dye] diazepam [From Valium] AdvReac Confusion Verified 10/12/17 12:41 lisinopril AdvReac Cough Verified 10/12/17 12:41 All Systems PM: A 10-system review of systems was performed and is negative for pertinent findings except as documented above in the HPI. Review of systems: Review of systems from his October 2017 [facility] hospitalization were reviewed and revised as below. Gen.: His weight increased from 81.5 kg on 05/26/2016 to 90.974 kg October 2017 hospitalization but has decreased to 77.564 kg today. Cardiovascular: He has history of hypertension. He is on Coumadin for history of DVT per old records but he denies knowledge of DVT or pulmonary embolism. 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 He has known ASHD status post NH with PTCA and stent placement over 15 years ago. He does not know if atrial fib/flutter has been diagnosed. He is uncertain why he is on Coumadin. Echocardiogram 05/23/2016 showed LVEF of 60-65%. There was reported mild diastolic dysfunction but E/A ratio was 1.4. He had a 3.9 x 3.7 fusiform infrarenal abdominal aortic aneurysm on CT 05/23/2016. He has had bilateral carotid endarterectomies. Respiratory: As per history of present illness GI: He has had cholecystectomy. He has rare GERD symptoms. He denies disorders of his liver or exocrine pancreas. The chart reports he has had partial gastrectomy Billroth II procedure for duodenal ulcer. His daughter reports he has had 2 Brennen-en-Y surgeries with most recent one approximately 2003. : He has stage III chronic kidney disease at least since March 2014. 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 He denies other kidney bladder or prostate disorders. Neurologic: He has been diagnosed with Alzheimer's. He has had "mini strokes" without focal neurologic deficit. Endocrine: He denies diabetes but has hypothyroidism and hyperlipidemia Hematology/oncology: He denies internal malignancies. He had skin cancer removed from his neck. He has had anemia intermittently since August 2014. Psychiatric: He has anxiety and bipolar disorder but denies other mental health issues. [place] skeletal: Denies arthritis gout or other bone joint or muscle disorders. Uric acid level was elevated at 9.0 on 12/29/2017. - Constitutional Vitals: Temp Pulse Resp BP Pulse Ox 98.8 F 92 16 92/47 94 09/27/18 18:24 09/27/18 18:24 09/27/18 18:24 09/27/18 18:24 09/27/18 18:24 Exam: Gen.: He is a well-developed well-nourished male resting comfortably in bed who appears in no acute distress HEENT: Head is atraumatic and normocephalic. Eyes: EOMI. There is no scleral icterus. Mouth: Mucosa is moist. Neck: Supple and nontender. There is no thyromegaly or adenopathy noted. Heart: Regular without murmurs gallops or ectopics Lungs: No wheezes, egophony or crackles are heard. He does not appear dyspneic. Abdomen: Soft and nontender. No masses or guarding are noted. Extremities: There is no cyanosis edema or clubbing noted. Dorsalis pedis and posterior tibial pulses are trace to 1+ palpable bilaterally. Neurologic: Mental status: He is talkative and able to answer questions generally appropriately. Cranial nerves: Smile is symmetric. Forehead wrinkles bilaterally. Tongue protrudes midline. EOMI. Motor: There is no pronator drift. He has slight cogwheeling and rigidity on passive range of motion of his wrists and elbows. Cerebellar: Fair to nose is intact bilaterally. Skin: Warm and dry Internal Med - H&P Results - Labs CBC & Chem 7: 09/27/18 11:10 09/27/18 11:10 Labs: Short CBC 09/27/18 Range/Units 11:10 WBC 9.3 (4.3-11.1) K/mcL Hgb 11.2 L (12.9-16.9) g/dL Hct 34.9 L (37.5-50.1) % Plt Count 153 (140-400) K/mcL Neutrophils # 5.0 (1.6-8.9) K/mcL BMP 09/27/18 11:10 Sodium 139 Potassium 5.1 Chloride 105 Carbon Dioxide 28 BUN 37 H Creatinine 2.32 H Glucose 112 H Calcium 8.7 Cardiac Enzymes 09/27/18 Range/Units 11:10 Troponin I < 0.03 (< 0.04) ng/mL Liver Function 09/27/18 Range/Units 11:10 Total Bilirubin 0.4 (0.3-1.0) mg/dL AST 14 (13-39) Units/L ALT 11 (7-52) Units/L Alkaline Phosphatase 80 (34-104) Units/L Albumin 3.9 (3.5-5.7) g/dL Urine 09/27/18 Range/Units 10:20 Urine Color Light Yellow (Yellow) Urine Clarity Clear (Clear) Urine pH 6.0 (5.0-8.0) pH Units Ur Specific [place] 1.015 (1.010-1.025) Urine Protein Negative (Neg-Trace) mg/dL Urine Glucose (UA) Normal (Normal) mg/dL - Impressions ITS Impressions Chest X-Ray 09/27/18 10:30 IMPRESSION: No acute cardiopulmonary process. D/ / Nahum Villela MD / Nahum Villela MD Interpreting Provider: Nahum Villela MD
[2018-09-27] MEDS: Mirtazapine 15 MG TABLET PO SCH (19:30)
[2018-09-27] MEDS: Melatonin 3 MG TABLET PO SCH (19:30)
--- NOTE | 2018-09-27 23:07 | Electrocardiograph Report ---
[place] [id number] Test Date: 2018-09-27 Pat Name: Uzma Maria Department: EDP-12 Room: [facility] Gender: M Work Counselor: : 1940 Requested By: Angie Luz Order Number: [id number] Reading MD: Amelie Arrieta Measurements Intervals [place] Rate: 64 P: 75 WI: 155 QRS: 67 QRSD: 96 T: 72 QT: 431 QTc: 445 Interpretive Statements Sinus rhythm Electronically Signed On 09-27-2018 23:05:35 EDT by Amelie Arrieta
[2018-09-28] MEDS: Ipratropium/Albuterol Neb 3 ML IH SCH (04:45)
[2018-09-28 06:20] LABS: Basophils % 0.1 %; Hematocrit 28.1 % (37.5-50.1); Hemoglobin 9.3 g/dL (12.9-16.9); Immature Granulocytes % 0.5 % (0-4); Lymphocytes % 7.1 %; Mean Corpuscular HGB Conc 33.1 g/dL (31.6-35.5); Mean Corpuscular Hemoglobin 31.3 pg (28.0-33.3); Mean Corpuscular Volume 94.6 fL (83.0-100.0); Mean Platelet Volume 9.8 fL (9.4-12.4); Monocytes # 0.4 K/mcL (0.0-1.3); Monocytes % 2.9 %; Platelet Count 147 K/mcL (140-400); Red Blood Count 2.97 M/mcL (4.19-5.50); Segmented Neutrophils % 89.4 %; White Blood Count 14.7 K/mcL (4.3-11.1)
[2018-09-28 06:36] LABS: Uric Acid 7.6 mg/dL (2.3-7.6)
[2018-09-28 06:37] LABS: Potassium 4.8 mEq/L (3.5-5.1)
[2018-09-28 07:20] LABS: Neutrophils # 13.1 K/mcL (1.6-8.9)
[2018-09-28] MEDS: Aspirin Enteric Coated 81 MG Tablet PO SCH (08:09)
[2018-09-28] MEDS: lamoTRIgine 25 MG TABLET PO SCH (08:10)
[2018-09-28] MEDS: Cyanocobalamin (B-12) 1,000 MCG TABLET PO SCH (08:10)
[2018-09-28 08:52] LABS: Estimated Average Glucose 126 mg/dl
[2018-09-28] MEDS ORDERED: levoFLOXacin 500 MG TABLET PO SCH (09:00)
[2018-09-28 09:24] LABS: Folate 12.4 ng/mL (3.0-16.0); Vitamin B12 > 1500 pg/mL (250-1100)
--- NOTE | 2018-09-28 10:12 | Internal Med Progress Note ---
Date of Encounter: 09/28/18 Time of Encounter: 10:00 - Assessment and plan (1) Acute bronchitis Current Visit: Yes Status: Acute Assessment and plan: September 28. Pro-calcitonin was normal at 0.05. Discontinue Levaquin. Continue Ro bitussin-DM. Qualifiers: Bronchitis organism: unspecified organism Qualified Code(s): J20.9 - Acute bronchitis, unspecified (2) Elevated brain natriuretic peptide (BNP) level Current Visit: Yes Status: Acute Assessment and plan: September 28. Further elevation to 500 today. Suspect due to stress of acute bronchitis. Continue to monitor. (3) Anemia Current Visit: Yes Status: Acute Assessment and plan: September 28. Anemia testing showed iron 12, transferrin saturation 5%, transferrin 165, ferritin 116, B12 > 1500, and folate 12.4. Start ferrous sulfate with ascorbic acid in a.m. Qualifiers: Anemia type: unspecified type Qualified Code(s): D64.9 - Anemia, unspecified (4) CKD (chronic kidney disease) stage 3, GFR 30-59 ml/min Current Visit: No Status: Chronic Assessment and plan: September 28. Creatinine improved to 2.08. Continue to monitor. (5) Hyperuricemia Current Visit: Yes Status: Acute Assessment and plan: September 28. Uric acid WNL 7.6. (6) Weakness Current Visit: Yes Status: Acute Assessment and plan: September 28. Order PT and OT evaluations. He reports he can only walk 15 feet at home due to fatigue. - Subjective Interval history: September 28. He states he does not feel improved and did not sleep well last night. He is still coughing with production of yellow sputum. He denies significant dyspnea while at rest. - Constitutional Vitals: Temp Pulse Resp BP Pulse Ox 98.7 F 70 24 99/51 93 09/28/18 07:44 09/28/18 07:44 09/28/18 07:44 09/28/18 07:44 09/28/18 07:44 Exam: He is lying in bed and appears minimally dyspneic at rest. Lungs show a few scattered rhonchi. Heart is regular without murmurs gallops or ectopics. Extremity show no pitting edema. I reviewed his medications and lab results. Internal Medicine: Result - Labs CBC & Chem 7: 09/28/18 05:15 09/28/18 05:15 Labs: Short CBC 09/27/18 09/28/18 Range/Units 11:10 05:15 WBC 9.3 14.7 H D (4.3-11.1) K/mcL Hgb 11.2 L 9.3 L D (12.9-16.9) g/dL Hct 34.9 L 28.1 L (37.5-50.1) % Plt Count 153 147 (140-400) K/mcL Neutrophils # 5.0 13.1 H (1.6-8.9) K/mcL BMP 09/27/18 09/28/18 11:10 05:15 Sodium 139 135 L Potassium 5.1 4.8 Chloride 105 105 Carbon Dioxide 28 23 BUN 37 H 36 H Creatinine 2.32 H 2.08 H Glucose 112 H 157 H Calcium 8.7 8.0 L Cardiac Enzymes 09/27/18 Range/Units 11:10 Troponin I < 0.03 (< 0.04) ng/mL Liver Function 09/27/18 Range/Units 11:10 Total Bilirubin 0.4 (0.3-1.0) mg/dL AST 14 (13-39) Units/L ALT 11 (7-52) Units/L Alkaline Phosphatase 80 (34-104) Units/L Albumin 3.9 (3.5-5.7) g/dL Urine 09/27/18 Range/Units 10:20 Urine Color Light Yellow (Yellow) Urine Clarity Clear (Clear) Urine pH 6.0 (5.0-8.0) pH Units Ur Specific [place] 1.015 (1.010-1.025) Urine Protein Negative (Neg-Trace) mg/dL Urine Glucose (UA) Normal (Normal) mg/dL - ABG Interpretation ABG results: PT/INR, D-dimer PT 23.3 Seconds (9.4-12.1) H 09/27/18 11:10 - Impressions Impressions Chest X-Ray 09/27/18 10:30 IMPRESSION: No acute cardiopulmonary process. D/ / Nahum Villela MD / Nahum Villela MD Interpreting Provider: Nahum Villela MD Consult Discharge Plan - Plan Referrals: Parker Church, DO [Primary Care Provider] -
[2018-09-28] MEDS: Albuterol 2.5 MG/3 ML NEBULIZER IH PRN (10:49)
[2018-09-28] MEDS: *HR* Warfarin 2.5 MG TABLET PO SCH (19:06)
[2018-09-28] MEDS: Mirtazapine 15 MG TABLET PO SCH (21:05)
[2018-09-28] MEDS: Melatonin 3 MG TABLET PO SCH (21:05)
[2018-09-28] MEDS: Acetaminophen 325 MG TABLET PO PRN (23:24)
[2018-09-29 05:14] LABS: Basophils % 0.2 %; Immature Granulocytes % 0.8 % (0-4); Lymphocytes # 2.1 K/mcL (0.6-4.6); Lymphocytes % 16.3 %; Mean Corpuscular HGB Conc 33.3 g/dL (31.6-35.5); Mean Corpuscular Hemoglobin 31.5 pg (28.0-33.3); Mean Corpuscular Volume 94.4 fL (83.0-100.0); Mean Platelet Volume 9.9 fL (9.4-12.4); Monocytes # 0.8 K/mcL (0.0-1.3); Monocytes % 6.1 %; Platelet Count 130 K/mcL (140-400); Red Blood Count 2.86 M/mcL (4.19-5.50); Red Cell Distribution Width 14.1 % (11.5-14.5); Segmented Neutrophils % 76.6 %
[2018-09-29 05:36] LABS: Potassium 5.4 mEq/L (3.5-5.1)
[2018-09-29] MEDS: Ascorbic Acid 500 MG TABLET PO SCH (06:27)
[2018-09-29] MEDS: Aspirin Enteric Coated 81 MG Tablet PO SCH (09:53)
[2018-09-29] MEDS: lamoTRIgine 25 MG TABLET PO SCH (09:53)
[2018-09-29] MEDS: Cyanocobalamin (B-12) 1,000 MCG TABLET PO SCH (09:53)
[2018-09-29] MEDS: Acetaminophen 325 MG TABLET PO PRN ×2 (10:27→22:29)
--- NOTE | 2018-09-29 12:47 | Internal Med Progress Note ---
Date of Encounter: 09/29/18 Time of Encounter: 12:40 - Assessment and plan (1) Acute bronchitis Current Visit: Yes Status: Acute Assessment and plan: September 28. Pro-calcitonin was normal at 0.05. Discontinue Levaquin. Continue Ro bitussin-DM. September 29. WBC decreased to 13.0 with significant improvement in differential. Continue to monitor. Qualifiers: Bronchitis organism: unspecified organism Qualified Code(s): J20.9 - Acute bronchitis, unspecified (2) Elevated brain natriuretic peptide (BNP) level Current Visit: Yes Status: Acute Assessment and plan: September 28. Further elevation to 500 today. Suspect due to stress of acute bronchitis. Continue to monitor. September 29. BN peptide further elevated to 797. Order echocardiogram to further evaluate. (3) Anemia Current Visit: Yes Status: Acute Assessment and plan: September 28. Anemia testing showed iron 12, transferrin saturation 5%, transferrin 165, ferritin 116, B12 > 1500, and folate 12.4. Start ferrous sulfate with ascorbic acid in a.m. September 29. Hemoglobin further decreased to 9.0. Continue ferrous sulfate with asc orbic acid. Qualifiers: Anemia type: unspecified type Qualified Code(s): D64.9 - Anemia, unspecified (4) CKD (chronic kidney disease) stage 3, GFR 30-59 ml/min Current Visit: No Status: Chronic Assessment and plan: September 28. Creatinine improved to 2.08. Continue to monitor. (5) Weakness Current Visit: Yes Status: Acute Assessment and plan: September 28. Order PT and OT evaluations. He reports he can only walk 15 feet at home due to fatigue. September 29. Continue PT and OT evaluation. He feels he would benefit from swing bed stay. - Subjective Interval history: September 28. He states he does not feel improved and did not sleep well last night. He is still coughing with production of yellow sputum. He denies significant dyspnea while at rest. September 29. He has no new complaints. He states he feels weak. - Constitutional Vitals: Temp Pulse Resp BP Pulse Ox 101.3 F H 69 16 87/43 95 09/29/18 10:47 09/29/18 10:47 09/29/18 10:47 09/29/18 10:47 09/29/18 10:47 Exam: He is sitting in bed resting comfortably. His affect is overall cheerful. I reviewed his medications and lab results. Internal Medicine: Result - Labs CBC & Chem 7: 09/29/18 04:32 09/29/18 04:32 Labs: Short CBC 09/29/18 Range/Units 04:32 WBC 13.0 H (4.3-11.1) K/mcL Hgb 9.0 L (12.9-16.9) g/dL Hct 27.0 L (37.5-50.1) % Plt Count 130 L (140-400) K/mcL Neutrophils # 10.0 H (1.6-8.9) K/mcL BMP 09/29/18 04:32 Sodium 135 L Potassium 5.4 H Chloride 106 Carbon Dioxide 25 BUN 34 H Creatinine 2.08 H Glucose 116 H Calcium 8.0 L - ABG Interpretation ABG results: PT/INR, D-dimer PT 23.3 Seconds (9.4-12.1) H 09/27/18 11:10 Consult Discharge Plan - Plan Referrals: Parker Church DO [Primary Care Provider] -
[2018-09-29] MEDS: *HR* Warfarin 2.5 MG TABLET PO SCH (17:48)
[2018-09-29] MEDS: Mirtazapine 15 MG TABLET PO SCH (20:21)
[2018-09-29] MEDS: Melatonin 3 MG TABLET PO SCH (20:21)
[2018-09-29] MEDS: *HR* Digoxin 0.125 MG TABLET PO SCH (20:21)
[2018-09-30] MEDS: Ascorbic Acid 500 MG TABLET PO SCH (05:58)
[2018-09-30 06:25] LABS: Basophils % 0.3 %; Eosinophils # 0.1 K/mcL (0.0-0.6); Eosinophils % 0.5 %; Hematocrit 27.5 % (37.5-50.1); Immature Granulocytes % 0.4 % (0-4); Lymphocytes # 2.1 K/mcL (0.6-4.6); Lymphocytes % 21.6 %; Mean Corpuscular HGB Conc 32.7 g/dL (31.6-35.5); Mean Corpuscular Hemoglobin 30.7 pg (28.0-33.3); Mean Corpuscular Volume 93.9 fL (83.0-100.0); Mean Platelet Volume 9.7 fL (9.4-12.4); Monocytes # 0.8 K/mcL (0.0-1.3); Monocytes % 8.5 %; Neutrophils # 6.8 K/mcL (1.6-8.9); Platelet Count 130 K/mcL (140-400); Red Blood Count 2.93 M/mcL (4.19-5.50); Red Cell Distribution Width 14.1 % (11.5-14.5); Segmented Neutrophils % 68.7 %; White Blood Count 9.9 K/mcL (4.3-11.1)
[2018-09-30 06:43] LABS: Potassium 4.6 mEq/L (3.5-5.1)
[2018-09-30 07:06] LABS: INR 4.4
[2018-09-30] MEDS: lamoTRIgine 25 MG TABLET PO SCH (08:13)
[2018-09-30] MEDS: *HR* Digoxin 0.125 MG TABLET PO SCH (08:13)
[2018-09-30] MEDS: Aspirin Enteric Coated 81 MG Tablet PO SCH (08:13)
[2018-09-30] MEDS: Cyanocobalamin (B-12) 1,000 MCG TABLET PO SCH (08:13)
--- NOTE | 2018-09-30 13:49 | Internal Med Progress Note ---
Date of Encounter: 09/30/18 Time of Encounter: 13:35 - Assessment and plan (1) Acute bronchitis Current Visit: Yes Status: Acute Assessment and plan: September 28. Pro-calcitonin was normal at 0.05. Discontinue Levaquin. Continue Ro bitussin-DM. September 29. WBC decreased to 13.0 with significant improvement in differential. Continue to monitor. September 30. WBC and left shift normalized. Remain off antibiotics. Qualifiers: Bronchitis organism: unspecified organism Qualified Code(s): J20.9 - Acute bronchitis, unspecified (2) Elevated brain natriuretic peptide (BNP) level Current Visit: Yes Status: Acute Assessment and plan: September 28. Further elevation to 500 today. Suspect due to stress of acute bronchitis. Continue to monitor. September 29. BN peptide further elevated to 797. Order echocardiogram to further evaluate. September 30. BN peptide improved to 370. Echocardiogram showed LVEF of 6065% with mild aortic regurgitation and mitral regurgitation. The interventricular septum and posterior wall thickness measurements were 0.80 cm each. E/A ratio was 1.6. Remain off metoprolol. Continue Lanoxin. (3) Anemia Current Visit: Yes Status: Acute Assessment and plan: September 28. Anemia testing showed iron 12, transferrin saturation 5%, transferrin 165, ferritin 116, B12 > 1500, and folate 12.4. Start ferrous sulfate with ascorbic acid in a.m. September 29. Hemoglobin further decreased to 9.0. Continue ferrous sulfate with ascorbic acid. Qualifiers: Anemia type: unspecified type Qualified Code(s): D64.9 - Anemia, unsp ecified (4) CKD (chronic kidney disease) stage 3, GFR 30-59 ml/min Current Visit: No Status: Chronic Assessment and plan: September 28. Creatinine improved to 2.08. Continue to monitor. September 30. Creatinine improved further to 1.79. Continue present Rx. (5) Weakness Current Visit: Yes Status: Acute Assessment and plan: September 28. Order PT and OT evaluations. He reports he can only walk 15 feet at home due to fatigue. September 29. Continue PT and OT evaluation. He feels he would benefit from swing bed stay. September 30. Anticipate discharge to swing bed tomorrow. - Subjective Interval history: September 28. He states he does not feel improved and did not sleep well last night. He is still coughing with production of yellow sputum. He denies significant dyspnea while at rest. September 29. He has no new complaints. He states he feels weak. September 30. He reports he has had loose stools today. He denies pain or significant dyspnea. - Constitutional Vitals: Temp Pulse Resp BP Pulse Ox 99.9 F H 72 20 105/45 99 09/30/18 06:45 09/30/18 06:45 09/30/18 06:45 09/30/18 06:45 09/30/18 06:45 Exam: He is resting comfortably in bed and appears in no acute distress. His affect is bright and cheerful. Extremities show no pitting edema. I reviewed his medications and lab results. Internal Medicine: Result - Labs CBC & Chem 7: 09/30/18 05:53 09/30/18 05:53 Labs: Short CBC 09/30/18 Range/Units 05:53 WBC 9.9 (4.3-11.1) K/mcL Hgb 9.0 L (12.9-16.9) g/dL Hct 27.5 L (37.5-50.1) % Plt Count 130 L (140-400) K/mcL Neutrophils # 6.8 (1.6-8.9) K/mcL BMP 09/30/18 05:53 Sodium 138 Potassium 4.6 Chloride 106 Carbon Dioxide 27 BUN 29 H Creatinine 1.79 H Glucose 113 H Calcium 8.0 L - ABG Interpretation ABG results: PT/INR, D-dimer PT 50.0 Seconds (9.4-12.1) H* D 09/30/18 05:53 - Impressions Impressions Echocardiogram 09/29/18 12:49 Impressions: LVEF 60-65%. Moderate left ventricular diastolic dysfunction. Normal LV chamber size and wall thickness. Normal right ventricular structure and function. Mild aortic regurgitation. Mild mitral regurgitation. No evidence of pulmonary hypertension. Left Ventricular Wall Motion: Rest Echo Findings All wall segments showed normal motion. Findings: Study Quality * Technically adequate exam. ECG Findings * Normal sinus rhythm. Left Ventricle * LVEF 60-65%. * Moderate left ventricular diastolic dysfunction. * Normal LV chamber size and wall thickness. Right Ventricle * Normal right ventricular structure and function. Left Atrium * Mildly dilated left atrium. Right Atrium * Normal right atrial size. Aortic Valve * Trileaflet aortic valve. * Mild aortic regurgitation. * No aortic stenosis. * Normal aortic valve structure. Mitral Valve * Mild mitral regurgitation. * No mitral stenosis. * Normal mitral valve structure. Tricuspid Valve * Trace tricuspid regurgitation. * No tricuspid stenosis. * Normal tricuspid valve structure. * No evidence of pulmonary hypertension. Pulmonic Valve * Pulmonic valve is not well visualized. Aorta * Normally sized aortic root. Pericardium * The pericardium appears normal. IVC * Normal IVC dimensions and inspiratory collapse. Pulmonary Artery * Pulmonary artery not well visualized. Consult Discharge Plan - Plan Referrals: Parker Church, [Primary Care Provider] -
[2018-09-30] MEDS: Acetaminophen 325 MG TABLET PO PRN (17:08)
[2018-09-30] MEDS ORDERED: *HR* Warfarin 5 MG TABLET PO SCH (18:00)
[2018-09-30] MEDS: Mirtazapine 15 MG TABLET PO SCH (20:56)
[2018-09-30] MEDS: Melatonin 3 MG TABLET PO SCH (20:56)
[2018-09-30] MEDS: Albuterol 2.5 MG/3 ML NEBULIZER IH PRN (21:31)
[2018-10-01] MEDS: Ascorbic Acid 500 MG TABLET PO SCH (06:12)
[2018-10-01 06:33] VITALS: BP 94/47
[2018-10-01] MEDS: Cyanocobalamin (B-12) 1,000 MCG TABLET PO SCH (09:20)
[2018-10-01] MEDS: Aspirin Enteric Coated 81 MG Tablet PO SCH (09:20)
[2018-10-01] MEDS: lamoTRIgine 25 MG TABLET PO SCH (09:20)
[2018-10-01] MEDS: *HR* Digoxin 0.125 MG TABLET PO SCH (09:20)
--- NOTE | 2018-10-01 16:36 | Discharge Summary ---
Orders not resulted at time of discharge: Pending orders 09/27/18 11:10 Culture,Blood [BC] Stat Date of Encounter: 10/01/18 Time of Encounter: 16:27 - Discharge Diagnosis (1) Acute bronchitis Priority: Primary Status: Acute Qualifiers: Bronchitis organism: unspecified organism Qualified Code(s): J20.9 - Acute bronchitis, unspecified (2) Elevated brain natriuretic peptide (BNP) level Priority: Secondary Status: Acute (3) Anemia Priority: Secondary Status: Acute Qualifiers: Anemia type: iron deficiency Iron deficiency anemia type: unspecified iron deficiency Qualified Code(s): D50.9 - Iron deficiency anemia, unspecified (4) CKD (chronic kidney disease) stage 3, GFR 30-59 ml/min Priority: Secondary Status: Chronic (5) Weakness Priority: Secondary Status: Acute Hospital course: Mr. Maria is a 78 year old male who came to emergency room complaining of 2-3 day history of chills, cough and dyspnea. He denies vomiting or diarrhea. His evaluated in emergency room and was felt to have exacerbation of COPD. He was admitted to [facility] for ongoing care. Initial orders were written by the emergency room physician. I saw him on September 27 and performed the history and physical. He was given IV Levaquin in emergency room and started on Solu-Medrol. I discontinued steroids. Robitussin-DM was ordered. Pro-calcitonin level returned WNL at 0.05. Antibiotics were discontinued. Anemia testing showed iron 12, transferrin saturation 5%, transferrin 165, ferritin 116, B12 > 1500, and folate 12.4. He was started on ferrous sulfate with ascorbic acid. Hemoglobin was stable at 9.0 on September 30. Creatinine decreased to 1.70 with estimated GFR 37 by day prior to discharge. BN peptide improved to 370. He had PT and OT evaluations with ongoing intervention. He made satisfactory progress. It was felt he would benefit from additional therapy in swing bed. On October 01 arrangements were complete for him to be discharged to swing bed. - Time Spent with Patient Total time spent providing and/or coordinating discharge services: - Discharge Medications Prescriptions: New Donepezil [Aricept] 10 mg PO HS tablet Ferrous Sulfate 325 mg PO 0630 tablet Digoxin [Lanoxin] 0.125 mg PO DAILY tablet GuaiFENesin/Dextromethorphan [Robitussin/Dm] 10 ml PO Q6HR 2 Days udc Ascorbic Acid [Vitamin C] 500 mg PO 0630 tablet Continued lamoTRIgine [Lamictal] 25 mg PO DAILY Omeprazole [PriLOSEC] 40 mg PO DAILY Buspirone HCl [Buspar] 7.5 mg PO BID Melatonin/Pyridoxine HCl (B6) [Melatonin 3 mg Tablet] 3 mg PO HS Aspirin Enteric Coated [Aspirin EC] 81 mg PO DAILY #90 tablet. Cyanocobalamin (Vitamin B-12) [Vitamin B12] 1,000 mcg PO DAILY Warfarin [Coumadin] 2.5 mg PO SUTUWETHSA #0 Mirtazapine [Remeron] 15 mg PO HS Escitalopram [Lexapro] 40 mg PO DAILY Warfarin [Coumadin] 5 mg PO MOFR Levothyroxine [Synthroid] 75 mcg PO DAILY Atorvastatin [Lipitor] 20 mg PO DAILY Discontinued Metoprolol [Lopressor] 12.5 mg PO BID #60 tablet Donepezil [Aricept] 5 mg PO HS Home Medications: Atorvastatin [Lipitor] 20 mg PO DAILY 04/02/15 [History] Escitalopram [Lexapro] 40 mg PO DAILY 04/02/15 [History] Levothyroxine [Synthroid] 75 mcg PO DAILY 04/02/15 [History] Mirtazapine [Remeron] 15 mg PO HS 04/02/15 [History] Warfarin [Coumadin] 5 mg PO MOFR 04/02/15 [History] lamoTRIgine [Lamictal] 25 mg PO DAILY 07/26/15 [History] Buspirone HCl [Buspar] 7.5 mg PO BID 05/22/16 [History] Melatonin/Pyridoxine HCl (B6) [Melatonin 3 mg Tablet] 3 mg PO HS 05/22/16 [History] Omeprazole [PriLOSEC] 40 mg PO DAILY 05/22/16 [History] Aspirin Enteric Coated [Aspirin EC] 81 mg PO DAILY #90 tablet. 05/26/16 [Rx] Cyanocobalamin (Vitamin B-12) [Vitamin B12] 1,000 mcg PO DAILY 03/15/17 [History] Warfarin [Coumadin] 2.5 mg PO SUTUWETHSA #0 03/16/17 [Rx] Ascorbic Acid [Vitamin C] 500 mg PO 0630 tablet 10/01/18 [Rx] Digoxin [Lanoxin] 0.125 mg PO DAILY tablet 10/01/18 [Rx] Donepezil [Aricept] 10 mg PO HS tablet 10/01/18 [Rx] Ferrous Sulfate 325 mg PO 0630 tablet 10/01/18 [Rx] GuaiFENesin/Dextromethorphan [Robitussin/Dm] 10 ml PO Q6HR 2 Days udc 10/01/18 [Rx] Allergies/Adverse Reactions: Allergy/AdvReac Type Severity Reaction Status Date / Time Iodinated Contrast- Oral and Allergy Anaphylaxis Verified 10/12/17 12:41 IV Dye [Iodinated Contrast Media - IV Dye] diazepam [From Valium] AdvReac Confusion Verified 10/12/17 12:41 lisinopril AdvReac Cough Verified 10/12/17 12:41 Date of admission: 09/28/18 10:15 Primary care physician: Parker Church DO Consults: 09/27/18 13:09 Consult to Nurse Navigator [CONS] Routine Comment: 09/28/18 10:17 Consult to Occupational Therapy [CONS] Routine Comment: Evaluate, develop and implement POC Reason for Consult: Weakness Does patient have active BEDREST order?: No Is patient medically & hemodynamically stable?: Yes Patient assessed for mobility or mobilized this visit?: Yes Consult to Physical Therapy [CONS] Routine Comment: Evaluate, develop and implement POC Reason for Consult: Weakness Does patient have active BEDREST order?: No Is patient medically & hemodynamically stable?: Yes Patient assessed for mobility or mobilized this visit?: Yes - Constitutional Vitals: Temp Pulse Resp BP Pulse Ox 99.8 F H 69 24 94/47 98 10/01/18 06:26 10/01/18 06:26 10/01/18 06:26 10/01/18 06:26 10/01/18 06:26 - Patient Status Disposition: Transfer Hospital Swing Bed Condition: Fair - Discharge Instructions Follow Up With: Parker Church DO [Primary Care Provider] - - Diet and Activity Activity: as per physical therapy Diet: advance to your usual diet, low salt diet
== END 2018-10-01 16:47 | disposition other institution (70) | DRG 192 ==
LOC: INPPIK 10:00 → EMEROOPIK 10:00 → INPPIK 13:25
PROVIDERS: ADMIT Internal Medicine; ATTEND Internal Medicine

== ENCOUNTER 2018-10-01 16:06 | Inpatient (IN) ==
[2018-10-01] MEDS: *HR* Warfarin 2.5 MG TABLET PO SCH (18:11)
[2018-10-01] MEDS: Melatonin 3 MG TABLET PO SCH (20:52)
[2018-10-01] MEDS: Mirtazapine 15 MG TABLET PO SCH (20:53)
[2018-10-02 06:17] LABS: Basophils % 0.3 %; Eosinophils # 0.3 K/mcL (0.0-0.6); Eosinophils % 5.2 %; Hematocrit 24.9 % (37.5-50.1); Hemoglobin 8.1 g/dL (12.9-16.9); Immature Granulocytes % 0.8 % (0-4); Lymphocytes # 1.5 K/mcL (0.6-4.6); Lymphocytes % 22.8 %; Mean Corpuscular HGB Conc 32.5 g/dL (31.6-35.5); Mean Corpuscular Hemoglobin 30.9 pg (28.0-33.3); Mean Platelet Volume 8.7 fL (9.4-12.4); Monocytes # 0.6 K/mcL (0.0-1.3); Monocytes % 9.3 %; Neutrophils # 4.1 K/mcL (1.6-8.9); Platelet Count 154 K/mcL (140-400); Red Blood Count 2.62 M/mcL (4.19-5.50); Red Cell Distribution Width 13.7 % (11.5-14.5); Segmented Neutrophils % 61.6 %; White Blood Count 6.6 K/mcL (4.3-11.1)
[2018-10-02 06:38] LABS: INR 2.8; Prothrombin Time 31.7 Seconds (9.4-12.1)
[2018-10-02 06:41] LABS: Activated Partial Thrombo Time 45.9 Seconds (26.0-36.0)
[2018-10-02 06:46] LABS: Calcium 7.8 mg/dL (8.6-10.3); Potassium 4.3 mEq/L (3.5-5.1)
[2018-10-02] MEDS: Ascorbic Acid 500 MG TABLET PO SCH (06:46)
[2018-10-02] MEDS: Aspirin Enteric Coated 81 MG Tablet PO SCH (08:11)
[2018-10-02] MEDS: Cyanocobalamin (B-12) 1,000 MCG TABLET PO SCH (08:12)
[2018-10-02] MEDS: lamoTRIgine 25 MG TABLET PO SCH (08:12)
[2018-10-02] MEDS: *HR* Digoxin 0.125 MG TABLET PO SCH (08:12)
[2018-10-02] MEDS: *HR* Warfarin 2.5 MG TABLET PO SCH (17:09)
--- NOTE | 2018-10-02 17:39 | Internal Med Progress Note ---
Date of Encounter: 10/02/18 Time of Encounter: 17:32 - Assessment and plan (1) CKD (chronic kidney disease) stage 3, GFR 30-59 ml/min Current Visit: No Status: Chronic Assessment and plan: October 02. Monitor renal indices. (2) Elevated brain natriuretic peptide (BNP) level Current Visit: No Status: Acute Assessment and plan: October 02. Echocardiogram showed LVEF of 60-65% with mild aortic regurgitation and mitral regurgitation. The interventricular septum and posterior wall thickness measurements were 0.80 cm each. E/A ratio was 1.6. Remain off metoprolol. Continue Lanoxin. (3) Anemia Current Visit: No Status: Acute Assessment and plan: October 02. Anemia testing showed iron 12, transferrin saturation 5%, transferrin 165, ferritin 116, B12 > 1500, and folate 12.4. Continue ferrous sulfate with ascorbic acid. Qualifiers: Anemia type: iron deficiency Iron deficiency anemia type: unspecified iron deficiency Qualified Code(s): D50.9 - Iron deficiency anemia, unspecified (4) Weakness Current Visit: No Status: Acute Assessment and plan: October 02. Continue PT and OT. - Subjective Interval history: October 02. He was hospitalized in acute-care September 27-October 01 with bronchitis. Pro- calcitonin level was WNL. Anemia testing showed likely iron deficiency and he was started on ferrous sulfate with ascorbic acid. PT/OT evaluations/interventions were done and it was felt would benefit from ongoing therapy in swing bed. He has no new complaints today. - Constitutional Vitals: Temp Pulse Resp BP Pulse Ox 98.7 F 63 16 97/54 99 10/02/18 06:00 10/02/18 06:00 10/01/18 17:35 10/02/18 06:00 10/02/18 06:00 Exam: He is resting comfortably in bed and appears in no acute distress. His affect is bright and cheerful. I reviewed his medications and lab results. Internal Medicine: Result - Labs CBC & Chem 7: 10/02/18 06:08 10/02/18 06:08 Labs: Short CBC 10/02/18 Range/Units 06:08 WBC 6.6 (4.3-11.1) K/mcL Hgb 8.1 L (12.9-16.9) g/dL Hct 24.9 L (37.5-50.1) % Plt Count 154 (140-400) K/mcL Neutrophils # 4.1 (1.6-8.9) K/mcL BMP 10/02/18 06:08 Sodium 139 Potassium 4.3 Chloride 106 Carbon Dioxide 28 BUN 16 Creatinine 1.55 H Glucose 110 H Calcium 7.8 L - ABG Interpretation ABG results: PT/INR, D-dimer PT 31.7 Seconds (9.4-12.1) H 10/02/18 06:08 Consult Discharge Plan - Plan Referrals: Parker Church, [Primary Care Provider] - 1 week
[2018-10-02] MEDS: Mirtazapine 15 MG TABLET PO SCH (20:17)
[2018-10-02] MEDS: Melatonin 3 MG TABLET PO SCH (20:17)
[2018-10-03] MEDS: Ascorbic Acid 500 MG TABLET PO SCH (05:57)
[2018-10-03] MEDS ORDERED: MOM Conc 10 ML UD.LIQ PO PRN (08:29)
[2018-10-03] MEDS: lamoTRIgine 25 MG TABLET PO SCH (09:35)
[2018-10-03] MEDS: Cyanocobalamin (B-12) 1,000 MCG TABLET PO SCH (09:35)
[2018-10-03] MEDS: Ondansetron ODT 4 MG TAB.RAPDIS SL PRN (09:36)
[2018-10-03] MEDS: Aspirin Enteric Coated 81 MG Tablet PO SCH (09:36)
[2018-10-03] MEDS: *HR* Digoxin 0.125 MG TABLET PO SCH (09:36)
[2018-10-03] MEDS ORDERED: *HR* Warfarin 5 MG TABLET PO SCH (18:00)
[2018-10-03] MEDS: Melatonin 3 MG TABLET PO SCH (20:45)
[2018-10-03] MEDS: Mirtazapine 15 MG TABLET PO SCH (20:45)
[2018-10-04] MEDS: Ascorbic Acid 500 MG TABLET PO SCH (05:51)
[2018-10-04 06:06] LABS: Basophils # 0.1 K/mcL (0.0-0.2); Basophils % 0.5 %; Eosinophils # 0.5 K/mcL (0.0-0.6); Eosinophils % 5.4 %; Hematocrit 28.5 % (37.5-50.1); Hemoglobin 9.1 g/dL (12.9-16.9); Immature Granulocytes % 1.1 % (0-4); Lymphocytes # 3.1 K/mcL (0.6-4.6); Lymphocytes % 31.7 %; Mean Corpuscular HGB Conc 31.9 g/dL (31.6-35.5); Mean Corpuscular Hemoglobin 30.4 pg (28.0-33.3); Mean Corpuscular Volume 95.3 fL (83.0-100.0); Mean Platelet Volume 8.9 fL (9.4-12.4); Monocytes # 0.7 K/mcL (0.0-1.3); Monocytes % 7.2 %; Neutrophils # 5.3 K/mcL (1.6-8.9); Platelet Count 258 K/mcL (140-400); Red Blood Count 2.99 M/mcL (4.19-5.50); Red Cell Distribution Width 13.7 % (11.5-14.5); Segmented Neutrophils % 54.1 %; White Blood Count 9.7 K/mcL (4.3-11.1)
[2018-10-04 06:43] LABS: Calcium 8.1 mg/dL (8.6-10.3); Potassium 4.2 mEq/L (3.5-5.1)
[2018-10-04 06:48] LABS: Prothrombin Time 56.7 Seconds (9.4-12.1)
[2018-10-04] MEDS: Cyanocobalamin (B-12) 1,000 MCG TABLET PO SCH (08:06)
[2018-10-04] MEDS: Aspirin Enteric Coated 81 MG Tablet PO SCH (08:06)
[2018-10-04] MEDS: lamoTRIgine 25 MG TABLET PO SCH (08:06)
[2018-10-04] MEDS: *HR* Digoxin 0.125 MG TABLET PO SCH (08:07)
--- NOTE | 2018-10-04 15:21 | Internal Med Progress Note ---
Date of Encounter: 10/04/18 Time of Encounter: 15:12 - Assessment and plan (1) CKD (chronic kidney disease) stage 3, GFR 30-59 ml/min Current Visit: No Status: Chronic Assessment and plan: October 02. Monitor renal indices. (2) Elevated brain natriuretic peptide (BNP) level Current Visit: No Status: Acute Assessment and plan: October 02. Echocardiogram showed LVEF of 60-65% with mild aortic regurgitation and mitral regurgitation. The interventricular septum and posterior wall thickness measurements were 0.80 cm each. E/A ratio was 1.6. Remain off metoprolol. Continue Lanoxin. October 04. Continue Lanoxin and add Imdur. (3) Anemia Current Visit: No Status: Acute Assessment and plan: October 02. Anemia testing showed iron 12, transferrin saturation 5%, transferrin 165, ferritin 116, B12 > 1500, and folate 12.4. Continue ferrous sulfate with ascorbic acid. October 04. Hemoglobin improved to 9.1. Continue ferrous sulfate with ascorbic a meghann. Qualifiers: Anemia type: iron deficiency Iron deficiency anemia type: unspecified iron deficiency Qualified Code(s): D50.9 - Iron deficiency anemia, unspecified (4) Weakness Current Visit: No Status: Acute Assessment and plan: October 02. Continue PT and OT. (5) Hypothyroidism Current Visit: Yes Status: Chronic Assessment and plan: October 04. TSH was normal at 0.377 on 09/27/2018. Continue present dose Synthroid. Qualifiers: Hypothyroidism type: unspecified Qualified Code(s): E03.9 - Hypothyroidism, unspecified (6) Nausea Current Visit: Yes Status: Acute Assessment and plan: October 04. Zofran will be ordered for prn use. - Subjective Interval history: October 02. He was hospitalized in acute-care September 27-October 01 with bronchitis. Pro- calcitonin level was WNL. Anemia testing showed likely iron deficiency and he was started on ferrous sulfate with ascorbic acid. PT/OT evaluations/interventions were done and it was felt would benefit from ongoing therapy in swing bed. He has no new complaints today. October 04. He complains of nausea without vomiting earlier today. There is no significant abdominal pain. - Constitutional Vitals: Temp Pulse Resp BP Pulse Ox 98.3 F 69 18 126/60 93 10/04/18 06:15 10/04/18 06:15 10/04/18 06:15 10/04/18 06:15 10/04/18 06:15 Exam: He is resting comfortably in bed and appears in no acute distress. Heart is regular without murmurs gallops or ectopics. Abdomen is soft and nontender. Extremities show no pitting edema. I reviewed his medications and lab results. Internal Medicine: Result - Labs CBC & Chem 7: 10/04/18 05:15 10/04/18 05:15 Labs: Short CBC 10/04/18 Range/Units 05:15 WBC 9.7 (4.3-11.1) K/mcL Hgb 9.1 L (12.9-16.9) g/dL Hct 28.5 L (37.5-50.1) % Plt Count 258 D (140-400) K/mcL Neutrophils # 5.3 (1.6-8.9) K/mcL BMP 10/04/18 05:15 Sodium 138 Potassium 4.2 Chloride 103 Carbon Dioxide 29 BUN 16 Creatinine 1.56 H Glucose 104 Calcium 8.1 L - ABG Interpretation ABG results: PT/INR, D-dimer PT 56.7 Seconds (9.4-12.1) H* D 10/04/18 05:15 Consult Discharge Plan - Plan Referrals: Parker Church DO [Primary Care Provider] - 1 week
[2018-10-04] MEDS: Isosorbide MONOnitrate (24 HR) 30 MG TAB.ER.24H PO SCH (17:06)
[2018-10-04] MEDS: Mirtazapine 15 MG TABLET PO SCH (20:48)
[2018-10-04] MEDS: Melatonin 3 MG TABLET PO SCH (20:48)
[2018-10-05] MEDS: Ascorbic Acid 500 MG TABLET PO SCH (05:12)
[2018-10-05] MEDS: Ondansetron ODT 4 MG TAB.RAPDIS SL PRN ×3 (05:18→19:54)
[2018-10-05] MEDS: *HR* Digoxin 0.125 MG TABLET PO SCH (09:30)
[2018-10-05] MEDS: Cyanocobalamin (B-12) 1,000 MCG TABLET PO SCH (09:30)
[2018-10-05] MEDS: lamoTRIgine 25 MG TABLET PO SCH (09:30)
[2018-10-05] MEDS: Isosorbide MONOnitrate (24 HR) 30 MG TAB.ER.24H PO SCH (09:30)
[2018-10-05] MEDS: Melatonin 3 MG TABLET PO SCH (19:54)
[2018-10-05] MEDS: Mirtazapine 15 MG TABLET PO SCH (19:54)
[2018-10-06] MEDS: Ascorbic Acid 500 MG TABLET PO SCH (06:07)
[2018-10-06] MEDS: Ondansetron ODT 4 MG TAB.RAPDIS SL PRN ×2 (06:08→14:09)
[2018-10-06 07:26] LABS: Prothrombin Time 96.4 Seconds (9.4-12.1)
[2018-10-06] MEDS ORDERED: *HR* Phytonadione 5 MG TABLET PO ONE (07:27)
[2018-10-06 07:29] LABS: INR 8.5
[2018-10-06] MEDS: Cyanocobalamin (B-12) 1,000 MCG TABLET PO SCH (07:33)
[2018-10-06] MEDS: lamoTRIgine 25 MG TABLET PO SCH (07:33)
[2018-10-06] MEDS: Isosorbide MONOnitrate (24 HR) 30 MG TAB.ER.24H PO SCH (07:33)
[2018-10-06] MEDS: *HR* Digoxin 0.125 MG TABLET PO SCH (07:33)
[2018-10-06] MEDS ORDERED: Aspirin Enteric Coated 81 MG Tablet PO SCH (09:00)
--- NOTE | 2018-10-06 14:26 | Internal Med Progress Note ---
Date of Encounter: 10/06/18 Time of Encounter: 14:15 - Assessment and plan (1) CKD (chronic kidney disease) stage 3, GFR 30-59 ml/min Current Visit: No Status: Chronic Assessment and plan: October 02. Monitor renal indices. (2) Elevated brain natriuretic peptide (BNP) level Current Visit: No Status: Acute Assessment and plan: October 02. Echocardiogram showed LVEF of 60-65% with mild aortic regurgitation and mitral regurgitation. The interventricular septum and posterior wall thickness measurements were 0.80 cm each. E/A ratio was 1.6. Remain off metoprolol. Continue Lanoxin. October 04. Continue Lanoxin and add Imdur. October 06. BN peptide has decreased to 400. Continue present Rx. (3) Anemia Current Visit: No Status: Acute Assessment and plan: October 02. Anemia testing showed iron 12, transferrin saturation 5%, transferrin 165, ferritin 116, B12 > 1500, and folate 12.4. Continue ferrous sulfate with ascorbic acid. October 04. Hemoglobin improved to 9.1. Continue ferrous sulfate with ascorbic acid. October 06. He questions if iron and ferrous sulfate could be contributing to nausea. These will be discontinued and he will be given iron dextran. Qualifiers: Anemia type: iron deficiency Iron deficiency anemia type: unspecified iron deficiency Qualified Code(s): D50.9 - Iron deficiency anemia, unspecified (4) Weakness Current Visit: No Status: Acute Assessment and plan: October 02. Continue PT and OT. (5) Hypothyroidism Current Visit: Yes Status: Chronic Assessment and plan: October 04. TSH was normal at 0.377 on 09/27/2018. Continue present dose Synt hroid. Qualifiers: Hypothyroidism type: unspecified Qualified Code(s): E03.9 - Hypothyroidism, unspecified (6) Nausea Current Visit: Yes Status: Acute Assessment and plan: October 04. Zofran will be ordered for prn use. October 06. Continue Zofran as needed. Aricept, ferrous sulfate, and ascorbic acid will be discontinued and iron dextran will be given. Digoxin level will be checked. - Subjective Interval history: October 02. He was hospitalized in acute-care September 27-October 01 with bronchitis. Pro-calcitonin level was WNL. Anemia testing showed likely iron deficiency and he was started on ferrous sulfate with ascorbic acid. PT/OT evaluations/interventions were done and it was felt would benefit from ongoing therapy in swing bed. He has no new complaints today. October 04. He complains of nausea without vomiting earlier today. There is no significant abdominal pain. October 06. He complains of ongoing nausea but denies pain vomiting or diarrhea. - Constitutional Vitals: Temp Pulse Resp BP Pulse Ox 98.3 F 68 16 159/61 94 10/06/18 07:11 10/06/18 07:11 10/06/18 07:11 10/06/18 07:11 10/06/18 07:11 Exam: He is resting comfortably in a chair at bedside and appears in no acute distress. Heart is regular without murmurs gallops or ectopics. Lungs are clear. Extremities show no edema. I reviewed his medications and lab results. Internal Medicine: Result - Labs CBC & Chem 7: 10/04/18 05:15 10/04/18 05:15 - ABG Interpretation ABG results: PT/INR, D-dimer PT 96.4 Seconds (9.4-12.1) H* D 10/06/18 04:38 Consult Discharge Plan - Plan Referrals: Parker Church DO [Primary Care Provider] - 1 week
[2018-10-06] MEDS ORDERED: SODIUM CHLORIDE 0.9% IVPB ONE (16:00)
[2018-10-06] MEDS ORDERED: IRON DEXTRAN COMPLEX IVPB ONE (16:00)
[2018-10-06] MEDS: Mirtazapine 15 MG TABLET PO SCH (20:36)
[2018-10-06] MEDS: Melatonin 3 MG TABLET PO SCH (20:36)
[2018-10-07 06:25] VITALS: BP 120/58
[2018-10-07 06:29] LABS: Basophils # 0.1 K/mcL (0.0-0.2); Basophils % 0.6 %; Eosinophils # 0.4 K/mcL (0.0-0.6); Eosinophils % 5.2 %; Hematocrit 26.4 % (37.5-50.1); Hemoglobin 8.5 g/dL (12.9-16.9); Immature Granulocytes % 1.5 % (0-4); Lymphocytes # 1.9 K/mcL (0.6-4.6); Lymphocytes % 24.7 %; Mean Corpuscular HGB Conc 32.2 g/dL (31.6-35.5); Mean Corpuscular Hemoglobin 30.6 pg (28.0-33.3); Mean Platelet Volume 8.8 fL (9.4-12.4); Monocytes # 0.6 K/mcL (0.0-1.3); Monocytes % 7.7 %; Neutrophils # 4.7 K/mcL (1.6-8.9); Platelet Count 349 K/mcL (140-400); Red Blood Count 2.78 M/mcL (4.19-5.50); Red Cell Distribution Width 14.2 % (11.5-14.5); Segmented Neutrophils % 60.3 %; White Blood Count 7.8 K/mcL (4.3-11.1)
[2018-10-07 06:50] LABS: Calcium 8.3 mg/dL (8.6-10.3); Digoxin 1.2 ng/mL (0.8-2.0); INR 1.7; Potassium 4.3 mEq/L (3.5-5.1); Prothrombin Time 18.9 Seconds (9.4-12.1)
[2018-10-07] MEDS: Cyanocobalamin (B-12) 1,000 MCG TABLET PO SCH (07:58)
[2018-10-07] MEDS: lamoTRIgine 25 MG TABLET PO SCH (07:58)
[2018-10-07] MEDS: Isosorbide MONOnitrate (24 HR) 30 MG TAB.ER.24H PO SCH (07:58)
[2018-10-07] MEDS: *HR* Digoxin 0.125 MG TABLET PO SCH (07:59)
[2018-10-07] MEDS: Ondansetron ODT 4 MG TAB.RAPDIS SL PRN (08:02)
--- NOTE | 2018-10-07 11:25 | Discharge Summary ---
Date of Encounter: 10/07/18 Time of Encounter: 11:17 - Discharge Diagnosis (1) CKD (chronic kidney disease) stage 3, GFR 30-59 ml/min Priority: Primary Status: Chronic (2) Elevated brain natriuretic peptide (BNP) level Priority: Secondary Status: Acute (3) Anemia Priority: Secondary Status: Acute Qualifiers: Anemia type: iron deficiency Iron deficiency anemia type: unspecified iron deficiency Qualified Code(s): D50.9 - Iron deficiency anemia, unspecified (4) Weakness Priority: Secondary Status: Acute (5) Hypothyroidism Priority: Secondary Status: Chronic Qualifiers: Hypothyroidism type: unspecified Qualified Code(s): E03.9 - Hypothyroidism, unspecified (6) Nausea Priority: Secondary Status: Acute Hospital course: Mr. Maria is a 78 year old male who was hospitalized in acute-care September 27-October 01 with bronchitis. Pro-calcitonin level was WNL. Anemia testing showed likely iron deficiency and he was started on ferrous sulfate with ascorbic acid. PT/OT evaluations/interventions were done and it was felt would benefit from ongoing therapy in swing bed. He continued with PT and OT in swing bed with slight progress. Home health services will be offered at discharge. He complained of nausea. Ferrous sulfate and ascorbic acid were discontinued and he was given iron dextran. Donepezil was also discontinued to avoid GI upset. Aspirin was decreased to 81 mg every other day to avoid worsening anemia and GI upset. Hemoglobin was stable at 8.5 on day of discharge. The WBC was normal and there was no left shift. He will be given Zofran at discharge for prn use. INR jak to 8.5 on October 06. He was given oral vitamin K and INR had decreased to 1.7 by the following day. He will resume home dose of Coumadin. Lanoxin and isosorbide were given for heart failure. BN peptide was stable at 403 on day of discharge. Creatinine was stable at 1.57 on day of discharge. On October 07 I felt he was stable for discharge home. He will follow with his PCP Dr. Church within 1 week. - Time Spent with Patient Total time spent providing and/or coordinating discharge services: - Discharge Medications Prescriptions: New Aspirin Enteric Coated [Aspirin EC] 81 mg PO Q48H tablet. Isosorbide MONOnitrate (24 HR) [Imdur] 30 mg PO DAILY #30 tab.er.24h Ondansetron ODT [Zofran ODT] 4 mg SL Q4HR PRN #12 tab.rapdis PRN Reason: Nausea Continued lamoTRIgine [Lamictal] 25 mg PO DAILY Omeprazole [PriLOSEC] 40 mg PO DAILY Buspirone HCl [Buspar] 7.5 mg PO BID Melatonin/Pyridoxine HCl (B6) [Melatonin 3 mg Tablet] 3 mg PO HS Cyanocobalamin (Vitamin B-12) [Vitamin B12] 1,000 mcg PO DAILY Warfarin [Coumadin] 2.5 mg PO SUTUWETHSA #0 Mirtazapine [Remeron] 15 mg PO HS Escitalopram [Lexapro] 40 mg PO DAILY Warfarin [Coumadin] 5 mg PO MOFR Levothyroxine [Synthroid] 75 mcg PO DAILY Atorvastatin [Lipitor] 20 mg PO DAILY Digoxin [Lanoxin] 0.125 mg PO DAILY #30 tablet Discontinued Aspirin Enteric Coated [Aspirin EC] 81 mg PO DAILY #90 tablet. Donepezil [Aricept] 10 mg PO HS tablet Ferrous Sulfate 325 mg PO 0630 tablet Ascorbic Acid [Vitamin C] 500 mg PO 0630 tablet Home Medications: Atorvastatin [Lipitor] 20 mg PO DAILY 04/02/15 [History] Escitalopram [Lexapro] 40 mg PO DAILY 04/02/15 [History] Levothyroxine [Synthroid] 75 mcg PO DAILY 04/02/15 [History] Mirtazapine [Remeron] 15 mg PO HS 04/02/15 [History] Warfarin [Coumadin] 5 mg PO MOFR 04/02/15 [History] lamoTRIgine [Lamictal] 25 mg PO DAILY 07/26/15 [History] Buspirone HCl [Buspar] 7.5 mg PO BID 05/22/16 [History] Melatonin/Pyridoxine HCl (B6) [Melatonin 3 mg Tablet] 3 mg PO HS 05/22/16 [History] Omeprazole [PriLOSEC] 40 mg PO DAILY 05/22/16 [History] Cyanocobalamin (Vitamin B-12) [Vitamin B12] 1,000 mcg PO DAILY 03/15/17 [History] Warfarin [Coumadin] 2.5 mg PO SUTUWETHSA #0 03/16/17 [Rx] Aspirin Enteric Coated [Aspirin EC] 81 mg PO Q48H tablet. 10/07/18 [Rx] Digoxin [Lanoxin] 0.125 mg PO DAILY #30 tablet 10/07/18 [Rx] Isosorbide MONOnitrate (24 HR) [Imdur] 30 mg PO DAILY #30 tab.er.24h 10/07/18 [Rx] Ondansetron ODT [Zofran ODT] 4 mg SL Q4HR PRN #12 tab.rapdis 10/07/18 [Rx] Allergies/Adverse Reactions: Allergy/AdvReac Type Severity Reaction Status Date / Time Iodinated Contrast- Oral and Allergy Anaphylaxis Verified 10/12/17 12:41 IV Dye [Iodinated Contrast Media - IV Dye] diazepam [From Valium] AdvReac Confusion Verified 10/12/17 12:41 lisinopril AdvReac Cough Verified 10/12/17 12:41 Date of admission: 10/01/18 16:50 Primary care physician: Parker Church DO Consults: 10/01/18 16:55 Consult to Occupational Therapy [CONS] Routine Comment: eval, develop, implement POC Reason for Consult: eval, develop, implement POC Does patient have active BEDREST order?: No Is patient medically & hemodynamically stable?: Yes Consult to Physical Therapy [CONS] Routine Comment: eval, develop, implement POC Reason for Consult: eval, develop, implement POC Does patient have active BEDREST order?: No Is patient medically & hemodynamically stable?: Yes Consult to Resin Painter [CONS] Routine Reason for SW Consult: Lives alone has law 10/01/18 18:41 Consult to Nutrition [CONS] Routine Comment: Consulting Provider: NUTRITION Reason for Dietary Consult: MST Score - Constitutional Vitals: Temp Pulse Resp BP Pulse Ox 98.9 F 63 18 120/58 97 10/07/18 06:22 10/07/18 06:22 10/07/18 06:22 10/07/18 06:22 10/07/18 06:22 - Patient Status Disposition: Home Health Service - Discharge Instructions Follow Up With: Parker Church DO [Primary Care Provider] - 1 week - Diet and Activity Activity: as per physical therapy Diet: low salt diet
--- NOTE | 2018-10-07 11:43 | Physician Discharge Referral ---
Home Health/Hosp Referral Info Transfer to: Home Health Attending Provider: Zachariah Provider in Charge Post Discharge: PCP (Ranjit) - Diagnosis (1) CKD (chronic kidney disease) stage 3, GFR 30-59 ml/min Priority: Primary Status: Chronic (2) Elevated brain natriuretic peptide (BNP) level Priority: Secondary Status: Acute (3) Anemia Priority: Secondary Status: Acute (4) Weakness Priority: Secondary Status: Acute (5) Hypothyroidism Priority: Secondary Status: Chronic (6) Nausea Priority: Secondary Status: Acute - Respiratory Orders Smoking Cessation: Smoking cessation has been advised. For more information, call the [place] Tobacco Quit Line at 3-996-SRKO-NOW. - Diet/Nutrition Diet/Nutrition Orders: Cardiac - Activity Activity Orders: Walker - Services Needed Following services are medically necessary services: Nursing, Home Health Aide, Physical Therapy, Occupational Therapy - Transfer Medications Prescriptions: Isosorbide MONOnitrate (24 HR) [Imdur] 30 mg PO DAILY #30 tab.er.24h Digoxin [Lanoxin] 0.125 mg PO DAILY #30 tablet Ondansetron ODT [Zofran ODT] 4 mg SL Q4HR PRN #12 tab.rapdis PRN Reason: Nausea Home Medications: Atorvastatin [Lipitor] 20 mg PO DAILY 04/02/15 [History] Escitalopram [Lexapro] 40 mg PO DAILY 04/02/15 [History] Levothyroxine [Synthroid] 75 mcg PO DAILY 04/02/15 [History] Mirtazapine [Remeron] 15 mg PO HS 04/02/15 [History] Warfarin [Coumadin] 5 mg PO MOFR 04/02/15 [History] lamoTRIgine [Lamictal] 25 mg PO DAILY 07/26/15 [History] Buspirone HCl [Buspar] 7.5 mg PO BID 05/22/16 [History] Melatonin/Pyridoxine HCl (B6) [Melatonin 3 mg Tablet] 3 mg PO HS 05/22/16 [History] Omeprazole [PriLOSEC] 40 mg PO DAILY 05/22/16 [History] Cyanocobalamin (Vitamin B-12) [Vitamin B12] 1,000 mcg PO DAILY 03/15/17 [History] Warfarin [Coumadin] 2.5 mg PO SUTUWETHSA #0 03/16/17 [Rx] Aspirin Enteric Coated [Aspirin EC] 81 mg PO Q48H tablet. 10/07/18 [Rx] Digoxin [Lanoxin] 0.125 mg PO DAILY #30 tablet 10/07/18 [Rx] Isosorbide MONOnitrate (24 HR) [Imdur] 30 mg PO DAILY #30 tab.er.24h 10/07/18 [Rx] Ondansetron ODT [Zofran ODT] 4 mg SL Q4HR PRN #12 tab.rapdis 10/07/18 [Rx] Allergies/Adverse Reactions: Allergy/AdvReac Type Severity Reaction Status Date / Time Iodinated Contrast- Oral and Allergy Anaphylaxis Verified 10/12/17 12:41 IV Dye [Iodinated Contrast Media - IV Dye] diazepam [From Valium] AdvReac Confusion Verified 10/12/17 12:41 lisinopril AdvReac Cough Verified 10/12/17 12:41 Certification: Further, I certify that my clinical findings support that this patient is homebound (i.e. absences from home require considerable and taxing effort and are for medical reasons or bahai services or infrequently or short duration when for other reasons) because: Homebound Reason: Leaving home requires considerable and taxing effort due to condition (CHF, weakness, nausea) Attestation: My signature below is to certify that this patient is under my care and that I, or nurse practitioner, or a physician's timber management assistant working with me, has a [id number] encounter with this patient.
== END 2018-10-07 13:00 | disposition home health service (06) | DRG 946 ==
LOC: INPPIK 16:50
PROVIDERS: ADMIT Internal Medicine; ATTEND Internal Medicine

== ENCOUNTER 2018-11-01 18:18 | Inpatient (IN) ==
[2018-11-01] MEDS ORDERED: Acetaminophen 325 MG TABLET PO ONE (18:26)
--- NOTE | 2018-11-01 18:31 | Emergency Department Note ---
Disposition Clinical Impression: Generalized weakness [id number] kidney injury Qualifiers: Acute renal failure type: unspecified Digitalis toxicity Qualifiers: Encounter type: initial encounter Injury intent: accidental or unintentional Qualified Code(s): T46.0X1A - Poisoning by cardiac-stimulant glycosides and drugs of similar action, accidental (unintentional), initial encounter Coumadin toxicity Qualifiers: Encounter type: initial encounter Injury intent: accidental or unintentional Qualified Code(s): T45.511A - Poisoning by anticoagulants, accidental (unintentional), initial encounter Pneumonia Qualifiers: Pneumonia type: due to unspecified organism Disposition: Admitted As Inpatient Condition: Fair Time of Disposition: 19:45 Weakness HPI - General Chief complaint: ED General Medical Stated complaint: ELEVATED INR, WEAKNESS Time Seen by Provider: 11/01/18 18:19 Source: patient, family, EMS Mode of arrival: EMS Limitations: age (Poorly mild dementia) Nursing Notes Reviewed: Yes Vital Signs Reviewed: Yes - History of Present Illness HPI Narrative: I was called at 7:33 PM by the anticoagulation clinic about this patient. Has advised his INR was 7.7 and that he has had additional problems of increased weakness, wobbliness and confusion. He has had decreased oral intake due to nausea. It had a slight headache. He had not had any other source for bleeding or problem. He is advised to hold his Coumadin until the next appointment on November 04 and to come here for further evaluation. Patient arrives here by EMS with an IV established in the left before meals, 20- gauge. They stated that he was waiting for them in the lobby and no additional information was given. Patient is seen immediately on arrival and he states that he "feels not too bad" but that he "always feels awful". He indicates he feels no more awful than usual. He relates for 2 months he has had some nausea and subsequent decreased oral intake. He thinks he might have lost some weight and recalls being weighed at 160 pounds in the past and 164 pounds today. He has not been having vomiting or abdominal pain. He denies headache or chest pain or shortness of breath the me. Reported a slight headache at the Coumadin clinic. He is not having fevers and states he has chills closed most the time" for months. He was observed for couple days for bronchitis a few weeks ago. He has completed all antibiotics but he did have some change to his heart medicines. His family relates that they did take him on a vacation this past week and he seemed a little more confused and weaker than usual. They advised that he has been still doing a lot of spitting and complaint of nausea. He has not had any type of fall or injury. Pt Subjective Complaint: generalized weakness/fatigue - Related Data Home Medications Medication Instructions Recorded Confirmed Atorvastatin [Lipitor] 20 mg PO DAILY 04/02/15 11/01/18 Escitalopram [Lexapro] 40 mg PO DAILY 04/02/15 11/01/18 Levothyroxine [Synthroid] 75 mcg PO DAILY 04/02/15 11/01/18 Mirtazapine [Remeron] 15 mg PO HS 04/02/15 11/01/18 Warfarin [Coumadin] 5 mg PO MOFR 04/02/15 11/01/18 lamoTRIgine [Lamictal] 25 mg PO DAILY 07/26/15 11/01/18 Buspirone HCl [Buspar] 7.5 mg PO BID 05/22/16 11/01/18 Melatonin/Pyridoxine HCl (B6) 3 mg PO HS 05/22/16 11/01/18 [Melatonin 3 mg Tablet] Omeprazole [PriLOSEC] 40 mg PO DAILY 05/22/16 11/01/18 Cyanocobalamin (Vitamin B-12) 1,000 mcg PO DAILY 03/15/17 11/01/18 [Vitamin B12] Previous Rx's Medication Instructions Recorded Warfarin [Coumadin] 2.5 mg PO SUTUWETHSA #0 03/16/17 Aspirin Enteric Coated [Aspirin EC] 81 mg PO Q48H tablet. 10/07/18 Digoxin [Lanoxin] 0.125 mg PO DAILY #30 tablet 10/07/18 Isosorbide MONOnitrate (24 HR) 30 mg PO DAILY #30 tab.er.24h 10/07/18 [Imdur] Ondansetron ODT [Zofran ODT] 4 mg SL Q4HR PRN #12 tab.rapdis 10/07/18 Allergies Allergy/AdvReac Type Severity Reaction Status Date / Time Iodinated Contrast- Oral and Allergy Anaphylaxis Verified 11/01/18 18:40 IV Dye [Iodinated Contrast Media - IV Dye] diazepam [From Valium] AdvReac Confusion Verified 11/01/18 18:40 lisinopril AdvReac Cough Verified 11/01/18 18:40 All systems ED: reviewed and negative except as stated. Past Medical History - Past Medical History Attestation: Yes The following information was validated with the patient. Source: patient, old records reviewed, obtained from family, nursing notes reviewed Medical history: Reports: aortic aneurysm, asthma, cancer, COPD, coronary artery disease, DVT, GERD, hyperlipidemia, myocardial infarction, renal disease, thyroid disease, other Surgical history: Reports: pacemaker/AICD Psychiatric history: Reports: bipolar, depression - Social History Smoking Status: Former smoker Smokeless Tobacco Status: No Alcohol use: Reports: none Drug use: Reports: none Course Course Narrative: 1907: Lab is called at the patient's digoxin is elevated at 3.3. 1939: Care has been discussed with Dr. Soni. He is agreeable with observation with continued hydration and antibiotics at this facility. His digoxin his Coumadin will be held. Verbal orders have been obtained for his observation period Vital Signs Temperature 97.6 F 11/01/18 18:23 Pulse Rate 60 11/01/18 18:23 Respiratory Rate 20 11/01/18 18:23 Blood Pressure 141/55 11/01/18 18:23 O2 Sat by Pulse Oximetry 100 11/01/18 18:23 Temperature 97.5 F L 11/01/18 20:53 Pulse Rate 60 11/01/18 20:53 Respiratory Rate 18 11/01/18 20:53 Blood Pressure 122/56 11/01/18 20:53 O2 Sat by Pulse Oximetry 98 11/01/18 20:53 Oxygen Delivery Oxygen Delivery Room Air Weakness - Differential Diagnosis Differential Diagnosis: Likely: anemia, sepsis/infection, dehydration, medication effect, metabolic - Medical Records Medical records reviewed: Yes I reviewed the patient's medical records. - Lab Data Lab results reviewed: Yes I reviewed the patient's lab results. Lab results narrative: Patient has chronic renal insufficiency but his last creatinine on October 07 was 1.57 and is now up to 2.88. He is dig toxic at a level of 3.3. Result diagrams: 11/01/18 18:39 11/01/18 18:39 Lab Results 11/01/18 11/01/18 11/01/18 Range/Units 18:39 18:39 18:39 WBC 8.7 (4.3-11.1) K/mcL RBC 3.26 L (4.19-5.50) M/mcL Hgb 10.4 L (12.9-16.9) g/dL Hct 32.0 L (37.5-50.1) % MCV 98.2 (83.0-100.0) fL MCH 31.9 (28.0-33.3) pg MCHC 32.5 (31.6-35.5) g/dL RDW 16.7 H (11.5-14.5) % Plt Count 170 (140-400) K/mcL MPV 9.4 (9.4-12.4) fL Immature Gran % 0.6 (0-4) % Seg Neutrophils % 50.3 % Lymphocytes % 38.6 % Monocytes % 7.4 % Eosinophils % 2.5 % Basophils % 0.6 % Neutrophils # 4.4 (1.6-8.9) K/mcL Lymphocytes # 3.4 (0.6-4.6) K/mcL Monocytes # 0.6 (0.0-1.3) K/mcL Eosinophils # 0.2 (0.0-0.6) K/mcL Basophils # 0.1 (0.0-0.2) K/mcL PT 82.1 H* (9.4-12.1) Seconds INR 7.2 H* Sodium 141 (136-145) mEq/L Potassium 4.6 (3.5-5.1) mEq/L Chloride 106 (98-107) mEq/L Carbon Dioxide 25 (23-29) mEq/L BUN 39 H (8-23) mg/dL Creatinine 2.88 H (0.70-1.30) mg/dL Est GFR ( Amer) 26 L (> 60) Est GFR (Non-Af Amer) 21 L (> 60) BUN/Creatinine Ratio 14 (6-26) Glucose 110 H (70-105) mg/dL Calculated Osmolality 302 H (280-300) Calcium 9.2 (8.6-10.3) mg/dL Total Bilirubin 0.4 (0.3-1.0) mg/dL AST 11 L (13-39) Units/L ALT 10 (7-52) Units/L Alkaline Phosphatase 76 (34-104) Units/L Troponin I 0.03 (< 0.04) ng/mL Serum Total Protein 6.4 (6.4-8.9) g/dL Albumin 3.7 (3.5-5.7) g/dL Globulin 2.7 (2.4-3.5) g/dL Albumin/Globulin Ratio 1.4 (1.1-2.2) Urine Color (Yellow) Urine Clarity (Clear) Urine pH (5.0-8.0) pH Units Ur Specific [place] (1.010-1.025) Urine Protein (Neg-Trace) mg/dL Urine Glucose (UA) (Normal) mg/dL Urine Ketones (Negative) mg/dL Urine Blood (Negative) Urine Nitrite (Negative) Urine Bilirubin (Negative) Urine Urobilinogen (Normal) mg/dL Ur Leukocyte Esterase (Negative) Ur Culture Indicated? (NO) Digoxin (0.8-2.0) ng/mL 11/01/18 11/01/18 Range/Units 18:39 19:12 WBC (4.3-11.1) K/mcL RBC (4.19-5.50) M/mcL Hgb (12.9-16.9) g/dL Hct (37.5-50.1) % MCV (83.0-100.0) fL MCH (28.0-33.3) pg MCHC (31.6-35.5) g/dL RDW (11.5-14.5) % Plt Count (140-400) K/mcL MPV (9.4-12.4) fL Immature Gran % (0-4) % Seg Neutrophils % % Lymphocytes % % Monocytes % % Eosinophils % % Basophils % % Neutrophils # (1.6-8.9) K/mcL Lymphocytes # (0.6-4.6) K/mcL Monocytes # (0.0-1.3) K/mcL Eosinophils # (0.0-0.6) K/mcL Basophils # (0.0-0.2) K/mcL PT (9.4-12.1) Seconds INR Sodium (136-145) mEq/L Potassium (3.5-5.1) mEq/L Chloride (98-107) mEq/L Carbon Dioxide (23-29) mEq/L BUN (8-23) mg/dL Creatinine (0.70-1.30) mg/dL Est GFR ( Amer) (> 60) Est GFR (Non-Af Amer) (> 60) BUN/Creatinine Ratio (6-26) Glucose (70-105) mg/dL Calculated Osmolality (280-300) Calcium (8.6-10.3) mg/dL Total Bilirubin (0.3-1.0) mg/dL AST (13-39) Units/L ALT (7-52) Units/L Alkaline Phosphatase (34-104) Units/L Troponin I (< 0.04) ng/mL Serum Total Protein (6.4-8.9) g/dL Albumin (3.5-5.7) g/dL Globulin (2.4-3.5) g/dL Albumin/Globulin Ratio (1.1-2.2) Urine Color Yellow (Yellow) Urine Clarity Clear (Clear) Urine pH 5.0 (5.0-8.0) pH Units Ur Specific [place] 1.020 (1.010-1.025) Urine Protein Trace (Neg-Trace) mg/dL Urine Glucose (UA) Normal (Normal) mg/dL Urine Ketones Trace H (Negative) mg/dL Urine Blood Negative (Negative) Urine Nitrite Negative (Negative) Urine Bilirubin Small H (Negative) Urine Urobilinogen Normal (Normal) mg/dL Ur Leukocyte Esterase Negative (Negative) Ur Culture Indicated? NO (NO) Digoxin 3.3 H* (0.8-2.0) ng/mL - Radiology Data Radiology results reviewed: Yes I reviewed the patient's radiology results. Single view chest x-ray is performed. This does not demonstrate evidence for infiltrate, effusion, pneumothorax, foreign body or heart failure. The cardiac silhouette is borderline enlarged. Patient has a pacer in the left upper chest with intact wires. I do not see abnormality to the osseous structures of the chest. This is on my interpretation. CT head is performed. This is reviewed on bone and soft tissue windows. There is no evidence for acute intracranial bleed, shift, mass or edema. Mastoids and sinuses appear normal. There is no fracture evident. This is on my interpretation. Impressions Chest X-Ray 11/01/18 18:26 IMPRESSION: Right upper lobe infiltrate/pneumonia. D/ / 11/01/2018 18:58:21 Wyatt Saldana MD / [email or web address] Interpreting Provider: Wyatt Saldana MD Head CT 11/01/18 18:27 IMPRESSION: No acute intracranial abnormality. D/ / Jax Agustin MD / Jax Agustin MD Interpreting Provider: Jax Agustin MD - EKG Data EKG attestation: Yes I reviewed and interpreted this EKG. EKG results narrative: Patient demonstrates an atrial paced rhythm with a rate of 63. Patient has an axis of 66, TN interval of 166 and a QT/QTC of 340/348. There are are inferior and lateral ST depression consistent with possible ischemia. These changes are increased from 09/27/2018. This is on my interpretation. Critical Care Time Critical Care Time: Yes Total Critical Care Time: 50 Attestation: As this patient did present with signs and symptoms of potential life- threatening illness requiring my urgent intervention, total critical care time in this patient's care has been 50 minutes, not withstanding separately reportable procedures.
[2018-11-01 18:46] LABS: Basophils # 0.1 K/mcL (0.0-0.2); Basophils % 0.6 %; Eosinophils # 0.2 K/mcL (0.0-0.6); Eosinophils % 2.5 %; Hemoglobin 10.4 g/dL (12.9-16.9); Immature Granulocytes % 0.6 % (0-4); Lymphocytes # 3.4 K/mcL (0.6-4.6); Lymphocytes % 38.6 %; Mean Corpuscular HGB Conc 32.5 g/dL (31.6-35.5); Mean Corpuscular Hemoglobin 31.9 pg (28.0-33.3); Mean Corpuscular Volume 98.2 fL (83.0-100.0); Mean Platelet Volume 9.4 fL (9.4-12.4); Monocytes # 0.6 K/mcL (0.0-1.3); Monocytes % 7.4 %; Neutrophils # 4.4 K/mcL (1.6-8.9); Platelet Count 170 K/mcL (140-400); Red Blood Count 3.26 M/mcL (4.19-5.50); Red Cell Distribution Width 16.7 % (11.5-14.5); Segmented Neutrophils % 50.3 %; White Blood Count 8.7 K/mcL (4.3-11.1)
[2018-11-01 19:03] LABS: Albumin 3.7 g/dL (3.5-5.7); Albumin/Globulin Ratio 1.4 (1.1-2.2); Bilirubin,Total 0.4 mg/dL (0.3-1.0); Calcium 9.2 mg/dL (8.6-10.3); Globulin 2.7 g/dL (2.4-3.5); Potassium 4.6 mEq/L (3.5-5.1); Total Protein 6.4 g/dL (6.4-8.9)
[2018-11-01 19:06] LABS: Troponin I 0.03 ng/mL (< 0.04)
[2018-11-01 19:12] LABS: INR 7.2; Prothrombin Time 82.1 Seconds (9.4-12.1)
[2018-11-01 19:18] LABS: Bilirubin,Urine Small (Negative); Blood,Urine Negative (Negative); Clarity,Urine Clear (Clear); Color,Urine Yellow (Yellow); Glucose,Urine (UA) Normal (Normal); Ketones,Urine Trace mg/dL (Negative); Leukocyte Esterase,Urine Negative (Negative); Nitrite,Urine Negative (Negative); Protein,Urine Trace mg/dL (Neg-Trace); Urobilinogen,Urine Normal (Normal)
[2018-11-01] MEDS ORDERED: Azithromycin 500 MG in D5% in Water 250 ML IVPB ONE ×2 (19:31→21:00)
[2018-11-01] MEDS ORDERED: 0.9 % Sodium Chloride 500 ML IVC ONE ×2 (19:31→20:33)
[2018-11-01] MEDS ORDERED: cefTRIAXone 2,000 MG in 0.9 % Sodium Chloride Mini Bag 100 ML IVPB ONE (19:31)
[2018-11-01] MEDS: 0.9 % Sodium Chloride 1,000 ML IVC SCH ×3 (19:53→22:30)
[2018-11-01] MEDS ORDERED: MOM Conc 10 ML UD.LIQ PO PRN (20:33)
[2018-11-01] MEDS ORDERED: Albuterol 2.5 MG/3 ML NEBULIZER IH PRN (20:33)
[2018-11-01] MEDS ORDERED: Naloxone 0.4 MG/ML INJ IVP PRN (20:33)
[2018-11-01] MEDS ORDERED: Mag Hydrox/Al Hydrox/Simeth 30 ML UDC PO PRN (20:33)
[2018-11-01] MEDS: Ipratropium/Albuterol Neb 3 ML IH SCH (22:08)
[2018-11-01] MEDS: PYRIDOXINE HCL PO SCH (22:32)
[2018-11-01] MEDS: MELATONIN PO SCH (22:32)
[2018-11-01] MEDS ORDERED: D5% in Water 250 ML ONE (22:41)
[2018-11-01] MEDS: Mirtazapine 15 MG TABLET PO SCH (22:47)
[2018-11-01] MEDS: Aspirin Enteric Coated 81 MG Tablet PO SCH (22:47)
[2018-11-02] MEDS: 0.9 % Sodium Chloride 1,000 ML IVC SCH ×2 (02:26→11:07)
[2018-11-02] MEDS: Ipratropium/Albuterol Neb 3 ML IH SCH ×2 (04:29→09:08)
[2018-11-02 06:27] LABS: Calcium 8.1 mg/dL (8.6-10.3); Potassium 3.8 mEq/L (3.5-5.1)
[2018-11-02] MEDS: Isosorbide MONOnitrate (24 HR) 30 MG TAB.ER.24H PO SCH (09:15)
[2018-11-02] MEDS: lamoTRIgine 25 MG TABLET PO SCH (09:15)
[2018-11-02] MEDS: Ondansetron ODT 4 MG TAB.RAPDIS SL PRN (09:20)
--- NOTE | 2018-11-02 14:34 | Electrocardiograph Report ---
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
--- NOTE | 2018-11-02 14:50 | Internal Med History&Physical ---
Date of Encounter: 11/02/18 Time of Encounter: 14:15 Assessment and Plan (1) Acute renal failure Current visit: No Status: Acute Suspect due to dehydration. IV fluids have been ordered. Renal indices will be monitored. Qualifiers: Acute renal failure type: unspecified Qualified Code(s): N17.9 - Acute kidney failure, unspecified (2) CKD (chronic kidney disease) stage 3, GFR 30-59 ml/min Current visit: No Status: Chronic As above (3) Anemia Current visit: No Status: Acute Will check iron studies in a.m. Qualifiers: Anemia type: iron deficiency Iron deficiency anemia type: unspecified iron deficiency Qualified Code(s): D50.9 - Iron deficiency anemia, unspecified (4) Weakness Current visit: Yes Status: Acute Order PT and OT evaluation. (5) Hypothyroidism Current visit: No Status: Chronic TSH was normal at 0.377 on 09/27/2018. Continue present dose Synthroid Qualifiers: Hypothyroidism type: unspecified Qualified Code(s): E03.9 - Hypothyroidism, unspecified (6) Digitalis toxicity Current visit: Yes Status: Acute Discontinue Lanoxin. Qualifiers: Encounter type: initial encounter Injury intent: accidental or unintentional Qualified Code(s): T46.0X1A - Poisoning by cardiac-stimulant glycosides and drugs of similar action, accidental (unintentional), initial encounter (7) Coumadin toxicity Current visit: Yes Status: Acute Discontinue Coumadin and continue aspirin 81 mg every other day. Qualifiers: Encounter type: initial encounter Injury intent: accidental or unintentional Qualified Code(s): T45.511A - Poisoning by anticoagulants, accidental (unintentional), initial encounter Internal Medicine - H&P: HPI Chief complaint: Elevated INR Admitted From: Emergency Dept Plans for Post Hospital Care: Home History of present illness: Mr. Maria is a 78 year old male who came to emergency room with the traction of Coumadin clinic staff for elevated INR found on blood work earlier in the day. Evaluation in emergency room confirmed elevated and INR as well as elevated Lanoxin level. There was acute on chronic renal insufficiency. He was admitted to [facility] floor for ongoing care needs. He has history of hypertension. He is on Coumadin for history of unprovoked DVT approximately 2011. 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 He has known ASHD status post ME with PT CA and stent placement over 15 years ago. He does not know if atrial fib/flutter has been diagnosed. Echocardiogram 09/29/2018 showed LVEF of 60-65%. There was mild aortic regurgitation and mild mitral regurgitation. The interventricular septum and posterior wall thickness measurements were normal at 0.80 each. E/A ratio was 1.6. He had a 3.9 x 3.7 fusiform infrarenal abdominal aortic aneurysm on CT 05/23/2016. He has had bilateral carotid endarterectomies. Past Med Surg Social Fam HX - Past Medical History Medical history: aortic aneurysm, asthma, cancer, COPD, coronary artery disease, DVT, GERD, hyperlipidemia, myocardial infarction, renal disease, thyroid disease, other Additional medical history: Abdominal Aortic Anurysm, Heart stent x1, skin cancer, Hypotension, ENLARGED PROSTATE Psychiatric history: bipolar, depression - Past Surgical History Surgical History: AICD, pacemaker Additional surgical history: gastrectomy - Social History Smoking Status: Former smoker Smokeless Tobacco Status: No Alcohol use: none Drug use: none - Family History Daughter Adopted: No Living Status: Still Living Hx Family Cardiac Disorders: No Hx Family Respiratory Disorders: No Hx Family Cancer: No Hx Family GI Disorders: Yes (Choli) Hx Family Endocrine Disorder: No Hx Family Neuromuscular Disorders: No Hx Family Neurologic Disorders: No Hx Family HEENT Disorders: No Hx Family Autoimmune Disorders: No Internal Medicine - H&P: Meds Atorvastatin [Lipitor] 20 mg PO DAILY 04/02/15 [History] Escitalopram [Lexapro] 40 mg PO DAILY 04/02/15 [History] Levothyroxine [Synthroid] 75 mcg PO DAILY 04/02/15 [History] Mirtazapine [Remeron] 15 mg PO HS 04/02/15 [History] Warfarin [Coumadin] 5 mg PO MOFR 04/02/15 [History] lamoTRIgine [Lamictal] 25 mg PO DAILY 07/26/15 [History] Buspirone HCl [Buspar] 7.5 mg PO BID 05/22/16 [History] Melatonin/Pyridoxine HCl (B6) [Melatonin 3 mg Tablet] 3 mg PO HS 05/22/16 [History] Omeprazole [PriLOSEC] 40 mg PO DAILY 05/22/16 [History] Cyanocobalamin (Vitamin B-12) [Vitamin B12] 1,000 mcg PO DAILY 03/15/17 [History] Warfarin [Coumadin] 2.5 mg PO SUTUWETHSA #0 03/16/17 [Rx] Aspirin Enteric Coated [Aspirin EC] 81 mg PO Q48H tablet. 10/07/18 [Rx] Digoxin [Lanoxin] 0.125 mg PO DAILY #30 tablet 10/07/18 [Rx] Isosorbide MONOnitrate (24 HR) [Imdur] 30 mg PO DAILY #30 tab.er.24h 10/07/18 [Rx] Ondansetron ODT [Zofran ODT] 4 mg SL Q4HR PRN #12 tab.rapdis 10/07/18 [Rx] Allergy/AdvReac Type Severity Reaction Status Date / Time Iodinated Contrast- Oral and Allergy Anaphylaxis Verified 11/01/18 18:40 IV Dye [Iodinated Contrast Media - IV Dye] diazepam [From Valium] AdvReac Confusion Verified 11/01/18 18:40 lisinopril AdvReac Cough Verified 11/01/18 18:40 All Systems PM: A 10-system review of systems was performed and is negative for pertinent findings except as documented above in the HPI. Review of systems: Review of systems from his October 2018 [facility] hospitalization were reviewed and revised as below. Gen.: His weight increased from 81.5 kg on 05/26/2016 to 90.974 kg October 2017 hospitalization but has decreased to 74.843 kg today. Cardiovascular: As per history of present illness Respiratory: He smoked from approximately age [age]. He denies chronic lung disease and does not use home oxygen GI: He has had cholecystectomy. He has rare GERD symptoms. He denies disorders of his liver or exocrine pancreas. The chart reports he has had partial gastrectomy Billroth II procedure for duodenal ulcer. His daughter reports he has had 2 Brennen-en-Y surgeries with most recent one approximately 2003. : He has stage III chronic kidney disease at least since March 2014. He follows with a [facility] rfid specialist. He denies other kidney bladder or prostate disorders. Neurologic: He has been diagnosed with Alzheimer's. He has had "mini strokes" without focal neurologic deficit. Endocrine: He denies diabetes but has hypothyroidism and hyperlipidemia Hematology/oncology: He denies internal malignancies. He had skin cancer removed from his neck. He has had anemia intermittently since August 2014. Psychiatric: He has anxiety and bipolar disorder but denies other mental health issues. [place] skeletal: Denies arthritis gout or other bone joint or muscle disorders. Uric acid level was 7.6 on 09/28/2018 - Constitutional Vitals: Temp Pulse Resp BP Pulse Ox 97.3 F L 78 16 90/40 97 11/02/18 10:18 11/02/18 10:18 11/02/18 10:18 11/02/18 10:18 11/02/18 10:18 Exam: Gen.: He is a well-developed well-nourished male resting comfortably in bed who appears in no acute distress. He complains of nausea. HEENT: Head is atraumatic and normocephalic. Eyes: EOMI. There is no scleral icterus. Mouth: Mucosa is moist. Neck: Supple and nontender. There is no thyromegaly or adenopathy noted. Heart: Regular without murmurs gallops or ectopics Lungs: No wheezes or crackles are heard. Abdomen: Soft and nontender. No masses or guarding are noted. Extremities: There is no cyanosis edema or clubbing noted. Dorsalis pedis and posterior tibial pulses are trace to 1+ palpable bilaterally. Neurologic: Mental status: He is talkative and a fairly good historian. He does not remember some details of his past history. Cranial nerves: Smile is symmetric. Forehead wrinkles bilaterally. Tongue protrudes midline. EOMI. Motor: There is no pronator drift. He has no significant cogwheeling rigidity on passive range of motion of his wrists or elbows. Myerson sign is negative. Cerebellar: Finger to nose is intact bilaterally. Skin: Warm and dry Internal Med - H&P Results - Labs CBC & Chem 7: 11/01/18 18:39 11/02/18 05:48 Labs: Short CBC 11/01/18 Range/Units 18:39 WBC 8.7 (4.3-11.1) K/mcL Hgb 10.4 L (12.9-16.9) g/dL Hct 32.0 L (37.5-50.1) % Plt Count 170 (140-400) K/mcL Neutrophils # 4.4 (1.6-8.9) K/mcL BMP 11/01/18 11/02/18 18:39 05:48 Sodium 141 144 Potassium 4.6 3.8 Chloride 106 111 H Carbon Dioxide 25 24 BUN 39 H 34 H Creatinine 2.88 H 2.53 H Glucose 110 H 100 Calcium 9.2 8.1 L Cardiac Enzymes 11/01/18 Range/Units 18:39 Troponin I 0.03 (< 0.04) ng/mL Liver Function 11/01/18 Range/Units 18:39 Total Bilirubin 0.4 (0.3-1.0) mg/dL AST 11 L (13-39) Units/L ALT 10 (7-52) Units/L Alkaline Phosphatase 76 (34-104) Units/L Albumin 3.7 (3.5-5.7) g/dL Urine 11/01/18 Range/Units 19:12 Urine Color Yellow (Yellow) Urine Clarity Clear (Clear) Urine pH 5.0 (5.0-8.0) pH Units Ur Specific [place] 1.020 (1.010-1.025) Urine Protein Trace (Neg-Trace) mg/dL Urine Glucose (UA) Normal (Normal) mg/dL - Impressions ITS Impressions Chest X-Ray 11/01/18 18:26 IMPRESSION: Right upper lobe infiltrate/pneumonia. D/ / 11/01/2018 18:58:21 yWatt Saldana MD / bcarter Interpreting Provider: Wyatt Saldana MD Head CT 11/01/18 18:27 IMPRESSION: No acute intracranial abnormality. D/ / Jax Agustin MD / Jax Agustin MD Interpreting Provider: Jax Agustin MD
[2018-11-02] MEDS ORDERED: *HR* Phytonadione 5 MG TABLET PO ONE (15:08)
[2018-11-02] MEDS: 0.45 % Sodium Chloride w/KCl 20 MEQ/1,000 ML MLS IVC SCH (16:53)
[2018-11-02] MEDS ORDERED: cefTRIAXone 2,000 MG in Water for inj. (sterile) 20 ML IVP SCH (18:00)
[2018-11-02] MEDS: Mirtazapine 15 MG TABLET PO SCH (19:54)
[2018-11-02] MEDS: MELATONIN PO SCH (19:54)
[2018-11-02] MEDS: PYRIDOXINE HCL PO SCH (19:54)
[2018-11-02] MEDS ORDERED: Azithromycin 500 MG in D5% in Water 250 ML IVPB SCH (21:00)
[2018-11-03 06:25] LABS: Basophils % 0.6 %; Eosinophils # 0.3 K/mcL (0.0-0.6); Eosinophils % 4.7 %; Hematocrit 29.3 % (37.5-50.1); Hemoglobin 9.3 g/dL (12.9-16.9); Immature Granulocytes % 0.5 % (0-4); Lymphocytes # 2.1 K/mcL (0.6-4.6); Lymphocytes % 32.8 %; Mean Corpuscular HGB Conc 31.7 g/dL (31.6-35.5); Mean Corpuscular Hemoglobin 31.5 pg (28.0-33.3); Mean Corpuscular Volume 99.3 fL (83.0-100.0); Mean Platelet Volume 9.5 fL (9.4-12.4); Monocytes # 0.5 K/mcL (0.0-1.3); Monocytes % 8.4 %; Neutrophils # 3.4 K/mcL (1.6-8.9); Platelet Count 156 K/mcL (140-400); Red Blood Count 2.95 M/mcL (4.19-5.50); Red Cell Distribution Width 17.2 % (11.5-14.5); White Blood Count 6.3 K/mcL (4.3-11.1)
[2018-11-03 06:45] LABS: Potassium 4.2 mEq/L (3.5-5.1)
[2018-11-03] MEDS: lamoTRIgine 25 MG TABLET PO SCH (08:59)
[2018-11-03] MEDS: Isosorbide MONOnitrate (24 HR) 30 MG TAB.ER.24H PO SCH (09:00)
[2018-11-03] MEDS: 0.45 % Sodium Chloride w/KCl 20 MEQ/1,000 ML MLS IVC SCH ×3 (09:00→23:52)
[2018-11-03] MEDS: Ondansetron ODT 4 MG TAB.RAPDIS SL PRN (09:12)
--- NOTE | 2018-11-03 10:15 | Internal Med Progress Note ---
Date of Encounter: 11/03/18 Time of Encounter: 10:05 - Assessment and plan (1) Acute renal failure Current Visit: No Status: Acute Assessment and plan: November 03. BUN and creatinine are decreased to 24 and 1.93 respectively with es timated GFR 34. Continue present Rx. Qualifiers: Acute renal failure type: unspecified Qualified Code(s): N17.9 - Acute kidney failure, unspecified (2) CKD (chronic kidney disease) stage 3, GFR 30-59 ml/min Current Visit: No Status: Chronic Assessment and plan: November 03. As above (3) Anemia Current Visit: No Status: Acute Assessment and plan: November 03. Hemoglobin has decreased to 9.3 with hydration. Iron studies show iron 43, transferrin saturation 25%, transferrin 123, and ferritin 418. Qualifiers: Anemia type: iron deficiency Iron deficiency anemia type: unspecified iron deficiency Qualified Code(s): D50.9 - Iron deficiency anemia, unspecified (4) Weakness Current Visit: Yes Status: Acute Assessment and plan: November 03. PT and OT evaluations have been ordered. (5) Hypothyroidism Current Visit: No Status: Chronic Assessment and plan: November 03. TSH was normal at 0.377 on 09/27/2018. Continue present dose Synthroid. Qualifiers: Hypothyroidism type: unspecified Qualified Code(s): E03.9 - Hypothyroidism, unspecified (6) Digitalis toxicity Current Visit: Yes Status: Acute Assessment and plan: November 03. Remain off Lanoxin. Qualifiers: Encounter type: initial encounter Injury intent: accidental or unintentional Qualified Code(s): T46.0X1A - Poisoning by cardiac-stimulant glycosides and drugs of similar action, accidental (unintentional), initial encounter (7) Coumadin toxicity Current Visit: Yes Status: Acute Assessment and plan: November 03. Remain off Coumadin and continue aspirin 81 mg every other day. Qualifiers: Encounter type: initial encounter Injury intent: accidental or unintentional Qualified Code(s): T45.511A - Poisoning by anticoagulants, accidental (unintentional), initial encounter - Subjective Interval history: November 03. He has no new complaints and feels better. - Constitutional Vitals: Temp Pulse Resp BP Pulse Ox 98.3 F 60 20 94/50 92 11/03/18 07:17 11/03/18 07:17 11/03/18 07:11/03/18 07:17 11/03/18 07:17 Exam: He is resting comfortably in bed and appears in no acute distress. His affect is bright and cheerful. I reviewed his medications and lab results. Internal Medicine: Result - Labs CBC & Chem 7: 11/03/18 06:08 11/03/18 06:08 Labs: Short CBC 11/03/18 Range/Units 06:08 WBC 6.3 (4.3-11.1) K/mcL Hgb 9.3 L (12.9-16.9) g/dL Hct 29.3 L (37.5-50.1) % Plt Count 156 (140-400) K/mcL Neutrophils # 3.4 (1.6-8.9) K/mcL BMP 11/03/18 06:08 Sodium 143 Potassium 4.2 Chloride 113 H Carbon Dioxide 23 BUN 24 H Creatinine 1.93 H Glucose 93 Calcium 8.0 L - ABG Interpretation ABG results: PT/INR, D-dimer PT 82.1 Seconds (9.4-12.1) H* 11/01/18 18:39 Consult Discharge Plan - Plan Referrals: Parker Church DO [Primary Care Provider] - 1 week
[2018-11-03] MEDS: Aspirin Enteric Coated 81 MG Tablet PO SCH (20:01)
[2018-11-03] MEDS: PYRIDOXINE HCL PO SCH (20:02)
[2018-11-03] MEDS: MELATONIN PO SCH (20:02)
[2018-11-03] MEDS: Mirtazapine 15 MG TABLET PO SCH (20:02)
[2018-11-04] MEDS: Isosorbide MONOnitrate (24 HR) 30 MG TAB.ER.24H PO SCH (07:46)
[2018-11-04] MEDS: lamoTRIgine 25 MG TABLET PO SCH (07:46)
--- NOTE | 2018-11-04 12:22 | Internal Med Progress Note ---
Date of Encounter: 11/04/18 Time of Encounter: 12:15 - Assessment and plan (1) Acute renal failure Current Visit: No Status: Acute Assessment and plan: November 03. BUN and creatinine are decreased to 24 and 1.93 respectively with es timated GFR 34. Continue present Rx. November 04. Recheck labs in a.m. Decrease IV fluid rate since oral intake satisfactory. Qualifiers: Acute renal failure type: unspecified Qualified Code(s): N17.9 - Acute kidney failure, unspecified (2) CKD (chronic kidney disease) stage 3, GFR 30-59 ml/min Current Visit: No Status: Chronic Assessment and plan: November 03. As above (3) Anemia Current Visit: No Status: Acute Assessment and plan: November 03. Hemoglobin has decreased to 9.3 with hydration. Iron studies show iron 43, transferrin saturation 25%, transferrin 123, and ferritin 418. November 04. Recheck labs in a.m. Qualifiers: Anemia type: iron deficiency Iron deficiency anemia type: unspecified iron deficiency Qualified Code(s): D50.9 - Iron deficiency anemia, unspecified (4) Weakness Current Visit: Yes Status: Acute Assessment and plan: November 03. PT and OT evaluations have been ordered. (5) Hypothyroidism Current Visit: No Status: Chronic Assessment and plan: November 03. TSH was normal at 0.377 on 09/27/2018. Continue present dose Synthroid. Qualifiers: Hypothyroidism type: unspecified Qualified Code(s): E03.9 - Hypothyroidism, unspecified (6) Digitalis toxicity Current Visit: Yes Status: Acute Assessment and plan: November 03. Remain off Lanoxin. Qualifiers: Encounter type: initial encounter Injury intent: accidental or unintentional Qualified Code(s): T46.0X1A - Poisoning by cardiac-stimulant glycosides and drugs of similar action, accidental (unintentional), initial encounter (7) Coumadin toxicity Current Visit: Yes Status: Acute Assessment and plan: November 03. Remain off Coumadin and continue aspirin 81 mg every other day. Qualifiers: Encounter type: initial encounter Injury intent: accidental or unintentional Qualified Code(s): T45.511A - Poisoning by anticoagulants, accidental (unintentional), initial encounter - Subjective Interval history: November 03. He has no new complaints and feels better. November 04. He has no new complaints. - Constitutional Vitals: Temp Pulse Resp BP Pulse Ox 97.8 F 60 16 122/55 98 11/04/18 11:12 11/04/18 11:12 11/04/18 11:12 11/04/18 11:12 11/04/18 11:12 Exam: He is resting comfortably in a chair at bedside and appears in no acute distress. His affect is overall cheerful. I reviewed his medications and past lab results. Internal Medicine: Result - Labs CBC & Chem 7: 11/03/18 06:08 11/03/18 06:08 - ABG Interpretation ABG results: PT/INR, D-dimer PT 82.1 Seconds (9.4-12.1) H* 11/01/18 18:39 Consult Discharge Plan - Plan Referrals: Parker Church DO [Primary Care Provider] - 1 week
[2018-11-04] MEDS ORDERED: 0.45 % Sodium Chloride w/KCl 20 MEQ/1,000 ML MLS IVC SCH (12:30)
[2018-11-04 18:41] VITALS: BP 105/71
[2018-11-04] MEDS: PYRIDOXINE HCL PO SCH (20:33)
[2018-11-04] MEDS: Mirtazapine 15 MG TABLET PO SCH (20:33)
[2018-11-04] MEDS: MELATONIN PO SCH (20:33)
[2018-11-05 07:13] LABS: Basophils # 0.1 K/mcL (0.0-0.2); Basophils % 0.8 %; Eosinophils # 0.4 K/mcL (0.0-0.6); Eosinophils % 6.3 %; Hematocrit 30.6 % (37.5-50.1); Hemoglobin 9.8 g/dL (12.9-16.9); Immature Granulocytes % 0.8 % (0-4); Lymphocytes # 1.7 K/mcL (0.6-4.6); Lymphocytes % 26.7 %; Mean Corpuscular Hemoglobin 31.2 pg (28.0-33.3); Mean Corpuscular Volume 97.5 fL (83.0-100.0); Mean Platelet Volume 10.2 fL (9.4-12.4); Monocytes # 0.5 K/mcL (0.0-1.3); Monocytes % 7.1 %; Neutrophils # 3.7 K/mcL (1.6-8.9); Platelet Count 180 K/mcL (140-400); Red Blood Count 3.14 M/mcL (4.19-5.50); Red Cell Distribution Width 16.7 % (11.5-14.5); Segmented Neutrophils % 58.3 %; White Blood Count 6.3 K/mcL (4.3-11.1)
[2018-11-05 07:24] LABS: Calcium 8.6 mg/dL (8.6-10.3); Potassium 4.8 mEq/L (3.5-5.1)
--- NOTE | 2018-11-05 09:47 | Discharge Summary ---
Date of Encounter: 11/05/18 Time of Encounter: 09:40 - Discharge Diagnosis (1) Acute renal failure Priority: Primary Status: Acute Qualifiers: Acute renal failure type: unspecified Qualified Code(s): N17.9 - Acute kidney failure, unspecified (2) CKD (chronic kidney disease) stage 3, GFR 30-59 ml/min Priority: Secondary Status: Chronic (3) Anemia Priority: Secondary Status: Acute Qualifiers: Anemia type: iron deficiency Iron deficiency anemia type: unspecified iron deficiency Qualified Code(s): D50.9 - Iron deficiency anemia, unspecified (4) Weakness Priority: Secondary Status: Chronic (5) Hypothyroidism Priority: Secondary Status: Chronic Qualifiers: Hypothyroidism type: unspecified Qualified Code(s): E03.9 - Hypothyroidism, unspecified (6) Digitalis toxicity Priority: Secondary Status: Acute Qualifiers: Encounter type: initial encounter Injury intent: accidental or unintentional Qualified Code(s): T46.0X1A - Poisoning by cardiac-stimulant glycosides and drugs of similar action, accidental (unintentional), initial encounter (7) Coumadin toxicity Priority: Secondary Status: Acute Qualifiers: Encounter type: initial encounter Injury intent: accidental or unintentional Qualified Code(s): T45.511A - Poisoning by anticoagulants, accidental (unintentional), initial encounter Hospital course: Mr. Maria is a 78 year old male who came to emergency room with the traction of Coumadin clinic staff for elevated INR found on blood work earlier in the day. Evaluation in emergency room confirmed elevated and INR as well as elevated Lanoxin level. There was acute on chronic renal insufficiency. He was admitted to [facility] floor for ongoing care needs. Initial orders were written by the emergency room physician. I saw him on November 02 and performed a history and physical. IV fluids were given and BUN and creatinine improved significantly to 10 and 1.41 respectively by day of discharge with estimated GFR 49. Lanoxin and Coumadin were held because of supratherapeutic levels. Family reports Coumadin was given for unprovoked DVT approximately 2011. He will remain off Coumadin at discharge and continue aspirin 81 mg every other day. Nausea decreased significantly during his hospital stay. On November 05 he felt stable for discharge home. He will follow with his PCP Dr. Church within 1 week. - Time Spent with Patient Total time spent providing and/or coordinating discharge services: - Discharge Medications Prescriptions: Continued lamoTRIgine [Lamictal] 25 mg PO DAILY Buspirone HCl [Buspar] 7.5 mg PO BID Melatonin/Pyridoxine HCl (B6) [Melatonin 3 mg Tablet] 3 mg PO HS Cyanocobalamin (Vitamin B-12) [Vitamin B12] 1,000 mcg PO DAILY Mirtazapine [Remeron] 15 mg PO HS Escitalopram [Lexapro] 40 mg PO DAILY Warfarin [Coumadin] 5 mg PO MOFR Levothyroxine [Synthroid] 75 mcg PO DAILY Atorvastatin [Lipitor] 20 mg PO DAILY Aspirin Enteric Coated [Aspirin EC] 81 mg PO Q48H tablet. Isosorbide MONOnitrate (24 HR) [Imdur] 30 mg PO DAILY #30 tab.er.24h Ondansetron ODT [Zofran ODT] 4 mg SL Q4HR PRN #12 tab.rapdis PRN Reason: Nausea Changed Omeprazole [PriLOSEC] 20 mg PO DAILY PRN #0 PRN Reason: Dyspepsia Discontinued Warfarin [Coumadin] 2.5 mg PO SUTUWETHSA #0 Digoxin [Lanoxin] 0.125 mg PO DAILY #30 tablet Home Medications: Atorvastatin [Lipitor] 20 mg PO DAILY 04/02/15 [History] Escitalopram [Lexapro] 40 mg PO DAILY 04/02/15 [History] Levothyroxine [Synthroid] 75 mcg PO DAILY 04/02/15 [History] Mirtazapine [Remeron] 15 mg PO HS 04/02/15 [History] Warfarin [Coumadin] 5 mg PO MOFR 04/02/15 [History] lamoTRIgine [Lamictal] 25 mg PO DAILY 07/26/15 [History] Buspirone HCl [Buspar] 7.5 mg PO BID 05/22/16 [History] Melatonin/Pyridoxine HCl (B6) [Melatonin 3 mg Tablet] 3 mg PO HS 05/22/16 [History] Cyanocobalamin (Vitamin B-12) [Vitamin B12] 1,000 mcg PO DAILY 03/15/17 [History] Aspirin Enteric Coated [Aspirin EC] 81 mg PO Q48H tablet. 10/07/18 [Rx] Isosorbide MONOnitrate (24 HR) [Imdur] 30 mg PO DAILY #30 tab.er.24h 10/07/18 [Rx] Ondansetron ODT [Zofran ODT] 4 mg SL Q4HR PRN #12 tab.rapdis 10/07/18 [Rx] Omeprazole [PriLOSEC] 20 mg PO DAILY PRN #0 11/05/18 [Rx] Allergies/Adverse Reactions: Allergy/AdvReac Type Severity Reaction Status Date / Time Iodinated Contrast- Oral and Allergy Anaphylaxis Verified 11/01/18 18:40 IV Dye [Iodinated Contrast Media - IV Dye] diazepam [From Valium] AdvReac Confusion Verified 11/01/18 18:40 lisinopril AdvReac Cough Verified 11/01/18 18:40 Date of admission: 11/02/18 15:35 Primary care physician: Parker Church DO Consults: 11/02/18 15:07 Consult to Occupational Therapy [CONS] Routine Comment: Evaluate, develop and implement POC Reason for Consult: Weakness Does patient have active BEDREST order?: No Is patient medically & hemodynamically stable?: Yes Patient assessed for mobility or mobilized this visit?: Yes Consult to Physical Therapy [CONS] Routine Comment: Evaluate, develop and implement POC Reason for Consult: Weakness Does patient have active BEDREST order?: No Is patient medically & hemodynamically stable?: Yes Patient assessed for mobility or mobilized this visit?: Yes - Constitutional Vitals: Temp Pulse Resp BP Pulse Ox 98.3 F 60 17 105/71 98 11/04/18 18:38 11/04/18 18:38 11/04/18 18:38 11/04/18 18:38 11/04/18 20:18 - Patient Status Disposition: Home Health Service Condition: Fair - Discharge Instructions Follow Up With: Parker Church DO [Primary Care Provider] - 1 week - Diet and Activity Activity: resume usual activities as tolerated Diet: advance to your usual diet
--- NOTE | 2018-11-05 09:54 | Physician Discharge Referral ---
Home Health/Hosp Referral Info Transfer to: Home Health Attending Provider: Zachariah Provider in Charge Post Discharge: PCP (Ranjit) - Diagnosis (1) Acute renal failure Priority: Primary Status: Acute (2) CKD (chronic kidney disease) stage 3, GFR 30-59 ml/min Priority: Secondary Status: Chronic (3) Anemia Priority: Secondary Status: Acute (4) Weakness Priority: Secondary Status: Chronic (5) Hypothyroidism Priority: Secondary Status: Chronic (6) Digitalis toxicity Priority: Secondary Status: Acute (7) Coumadin toxicity Priority: Secondary Status: Acute - Respiratory Orders Smoking Cessation: Smoking cessation has been advised. For more information, call the [place] Tobacco Quit Line at 5-477-VTMN-NOW. - Diet/Nutrition Diet/Nutrition Orders: Renal - Activity Activity Orders: Walker - Services Needed Following services are medically necessary services: Nursing, Home Health Aide, Physical Therapy, Occupational Therapy - Transfer Medications Home Medications: Atorvastatin [Lipitor] 20 mg PO DAILY 04/02/15 [History] Escitalopram [Lexapro] 40 mg PO DAILY 04/02/15 [History] Levothyroxine [Synthroid] 75 mcg PO DAILY 04/02/15 [History] Mirtazapine [Remeron] 15 mg PO HS 04/02/15 [History] Warfarin [Coumadin] 5 mg PO MOFR 04/02/15 [History] lamoTRIgine [Lamictal] 25 mg PO DAILY 07/26/15 [History] Buspirone HCl [Buspar] 7.5 mg PO BID 05/22/16 [History] Melatonin/Pyridoxine HCl (B6) [Melatonin 3 mg Tablet] 3 mg PO HS 05/22/16 [History] Cyanocobalamin (Vitamin B-12) [Vitamin B12] 1,000 mcg PO DAILY 03/15/17 [History] Aspirin Enteric Coated [Aspirin EC] 81 mg PO Q48H tablet. 10/07/18 [Rx] Isosorbide MONOnitrate (24 HR) [Imdur] 30 mg PO DAILY #30 tab.er.24h 10/07/18 [Rx] Ondansetron ODT [Zofran ODT] 4 mg SL Q4HR PRN #12 tab.rapdis 10/07/18 [Rx] Omeprazole [PriLOSEC] 20 mg PO DAILY PRN #0 11/05/18 [Rx] Allergies/Adverse Reactions: Allergy/AdvReac Type Severity Reaction Status Date / Time Iodinated Contrast- Oral and Allergy Anaphylaxis Verified 11/01/18 18:40 IV Dye [Iodinated Contrast Media - IV Dye] diazepam [From Valium] AdvReac Confusion Verified 11/01/18 18:40 lisinopril AdvReac Cough Verified 11/01/18 18:40 Certification: Further, I certify that my clinical findings support that this patient is homebound (i.e. absences from home require considerable and taxing effort and are for medical reasons or christian services or infrequently or short duration when for other reasons) because: Homebound Reason: Leaving home requires considerable and taxing effort due to condition (Weakness, anemia) Attestation: My signature below is to certify that this patient is under my care and that I, or nurse practitioner, or a physician's assistant librarian working with me, has a [id number] encounter with this patient.
== END 2018-11-05 11:00 | disposition home health service (06) | DRG 684 ==
LOC: EMEROOPIK 18:18 → INPPIK 18:18
PROVIDERS: ADMIT Internal Medicine; ATTEND Internal Medicine